=== PATIENT | male | born 1955 | race Caucasian/White ===

== ENCOUNTER 2017-07-10 12:55 | Inpatient (IN) | payer MEDICAID ==
--- NOTE | 2017-07-10 13:35 | ED Physician Chart ---
ED Chief Complaint/HPI - Patient Information Date Seen:: 07/10/17 Time Seen:: 13:10 Chief Complaint:: Vomiting History of Present Illness:: onset x 3 days of N/V/D, melena, and hematemesis; no report of trauma, H/As, neck pain, C/P, SOB, Abd. Pain, A/C fever, chills, or urinary s/s Allergies:: Allergies Allergy/AdvReac Type Severity Reaction Status Date / Time No Known Allergies Allergy Verified 07/10/17 13:12 Vitals:: Vital Signs - 8 hr 07/10/17 13:12 Temp 97.5 F HR 105 RR 37 BP 119/71 O2 Sat % 98 Historian:: Patient Review:: Nurse's Note Reviewed, Old Chart Reviewed, EMS run form Reviewed ED Review of Systems - Review of Systems General/Constitutional: Fever, No chills, No weight loss, No weakness, No diaphoresis, No edema, No loss of appetite Skin: No skin lesions, No rash, No bruising Head: No headache, No light-headedness Eyes: No loss of vision, No pain, No diplopia ENT: No earache, No nasal drainage, No sore throat, No tinnitus Neck: No neck pain, No swelling, No thyromegaly, No stiffness, No mass noted Cardio Vascular: No chest pain, No palpitations, No PND, No orthopnea, No edema Pulmonary: No SOB, No cough, No sputum, No wheezing GI: Nausea, Vomiting, Diarrhea, No diarrhea, No pain, Melena, No hematochezia, No constipation, Hematemesis G/U: No dysuria, No frequency, No hematuria, No nacturia Musculoskeletal: No bone or joint pain, No back pain, No muscle pain Endocrine: No polyuria, No polydipsia Psychiatric: No prior psych history, No depression, No anxiety, No suicidal ideation, No homicidal ideation, No auditory hallucination, No visual hallucination Hematopoietic: No bruising, No lymphadenopathy Allergic/Immuno: No urticaria, No angioedema Neurological: No syncope, No focal symptoms, No weakness, No paresthesia, No headache, No seizure, No dizziness, No confusion, No vertigo ED Past Medical History - Past Medical History Obtainable: Yes Past Medical History: Asthma/COPD, CVA/TIA, Dyslipidemia (Respiratory Failure), PUD/GERD, ESRD, Arthritis, Dementia Family History: Diabetes Melitus, HTN Social History: Non Smoker, No Alcohol, No Drug Use, Single, Care Facility Surgical History: PEG/GTube Psychiatricy History: None, Dementia Medication: Reviewed Family Medical History - Family Member Mother History Unknown: Yes ED Physical Exam - Physical Examination General/Constitutional: Awake, Well-developed, well-nourished, Alert, No distress, GCS 15, Non-toxic appearing, Ambulatory Head: Atraumatic Eyes: Lids, conjuctiva normal, PERRL, EOMI Skin: Nl inspection, No rash, No skin lesions, No ecchymosis, Well hydrated, No lymphadenopathy ENMT: External ears, nose nl, TM canals nl, Nasal exam nl, Lips, teeth, gums nl , Oropharynx nl, Tonsils nl Neck: Nontender, Full ROM w/o pain, No JVD, No nuchal rigidity, No bruit, No mass, No stridor Respiratory: Nl effort/Exclusion Other Respiratory comments:: Lungs: + Rales and Rhonchi; L>R Cardio Vascular: RRR, No murmur, gallop, rubs, NL S1 S2, Carotid/Femoral/Distal pulses equal bilaterally GI: No tenderness/rebounding/guarding, No organomegaly, No hernia, Normal BS's, Nondistended, No mass/bruits, No McBurney tenderness : No CVA tenderness Extremities: No tenderness or effusion, Full ROM, normal strength in all extremities, No edema, Normal digits & nails Neuro/Psych: Alert/oriented, DTR's symmetric, Normal sensory exam, Normal motor strength, Judgement/insight normal, Mood normal, Normal gait, No focal deficits Misc: Normal back, No paraspinal tenderness ED Labs/Radiology/EKG Results - Lab Results Comments:: K+: 2.9; BUN: 103; H/H: 8.7/26.1; BNP: 195; U/A: + Pyuria; Na+: 134 - Radiology Results Comments:: CXR: + LL Infiltrates; CM; CHF - EKG Interpretations EKG Time:: 14:00 Rate & Rhythm: 96; NSR Comments:: non-specific st-t changes ED Septic Shock - . Is Septic Shock (SBP<90, OR Lactate>4 mmol\L) present?: No - <6hrs of presentation: Vital Signs: Vital Signs - 8 hr 07/10/17 13:12 Temp 97.5 F HR 105 RR 37 BP 119/71 O2 Sat % 98 ED Reassessment (Disposition) - Reassessment Reassessment Condition:: Improved - Diagnosis Diagnosis:: Dx: GI Bleed; PNA; Sepsis; Hematemesis; Respiratory Failure; Anemia; Dehydration ; Pre-Renal Azotemia; CHF; Hypokalemia; UTI; Hyponatremia - Aftercare/Follow up Instructions Aftercare/Follow-Up Instructions:: Counseled pt regarding lab results/diagnosis & need follow up, Counseled pt & family regarding lab results/diagnosis & need follow up - Patient Disposition Discharge/Transfer:: Acute Care w/in this hosp Accepting Physician:: Dr. Meek Time Called:: 1430 Time Responded:: 14:30 Admitted to:: Telemetry Spoke to:: Dr. Meek Admitting Medical Physician:: Dr. Meek Condition at Disposition:: Stable, Improved
[2017-07-10] MEDS ORDERED: Sodium Chloride 0.9% 1,000 ML IV ONE (13:37)
--- NOTE | 2017-07-10 13:57 | Diagnostic Imaging Report ---
Portable chest x-ray HISTORY: Chest pain Prior exams are not available for comparison. The exam is limited due to marked patient rotation. There is elevation the right hemidiaphragm. Diffuse infiltrate is seen through the right lung. Infiltrate also noted in the left lower lobe. Changes may be chronic. However, pneumonia cannot be excluded. Pleural thickening noted in the right upper hemithorax. Tracheostomy is seen. IMPRESSION: 1. Elevation of the right hemidiaphragm along with diffuse infiltrate throughout the right lung and left lower lobe regions. Changes may be chronic. However, pneumonia cannot be excluded. Clinical correlation is needed.
[2017-07-10 14:19] LABS: HEMATOCRIT 26.1 % (41.0-60); HEMOGLOBIN 8.7 gm/dL (12-16); MEAN CELL VOLUME 83.9 fl (80-99); MEAN CORPUSCULAR HEMOGLOBIN 27.8 pg (26.0-30.0); MEAN CORPUSCULAR HGB CONC 33.2 pg (28.0-36.0); MEAN PLATELET VOLUME 6.5 fl; PLATELET COUNT 309 Th/cmm (150-400); RED BLOOD COUNT 3.11 Mil/cmm (4.30-5.70); RED CELL DISTRIBUTION WIDTH 16.5 % (11.5-20.0); WHITE BLOOD COUNT 8.9 Th/cmm (4.8-10.8)
[2017-07-10 14:30] LABS: INR 1.17 (0.5-1.4); PROTHROMBIN TIME (TEST) 12.3 SECONDS (9.5-11.5)
[2017-07-10 14:38] LABS: ALB/GLOB RATIO 0.7 (1.0-1.8); ALBUMIN 2.9 gm/dL (4.2-5.5); ANION GAP 14.1 (7.0-16.0); BILIRUBIN,TOTAL 0.5 mg/dL (0.3-1.0); CALCIUM SERUM 9.7 mg/dL (8.6-10.3); CARBON DIOXIDE 20.8 mEq/L (21.0-31.0); CREATININE - SERUM 1.7 mg/dL (0.7-1.3); GFR NON AFRICAN-AMERICAN 43.8 ml/min
[2017-07-10 14:46] LABS: MANUAL DIFF REQUIRED? YES
[2017-07-10 14:57] LABS: POTASSIUM SERUM 2.9 mEq/L (3.5-5.1)
[2017-07-10] MEDS ORDERED: Potassium Chloride 20 mEq ER Tab PO ONE (14:59)
[2017-07-10 15:15] LABS: BAND NEUTROPHILE 6 % (0-10); EOSINOPHIL 3 % (0-5); LYMPHOCYTE 10 % (20-50); MONOCYTE 6 % (2-10); NEUTROPHILS 75 % (40-80); TOTAL CELLS COUNTED 100
[2017-07-10 15:16] LABS: BASOPHIL 0 % (0-3)
[2017-07-10] MEDS ORDERED: Potassium Chloride Elixir 20 mEq /15 mL UDC ONE (15:24)
[2017-07-10 15:44] LABS: URINE MICROSCOPIC INDICATED? YES; URINE SOURCE CLEAN C
[2017-07-10 15:47] LABS: URINE BILIRUBIN NEGATIVE (NEGATIVE); URINE BLOOD MODERATE (NEGATIVE); URINE GLUCOSE (UA) NEGATIVE (NEGATIVE); URINE KETONE NEGATIVE (NEGATIVE); URINE LEUKOCYTE ESTERASE LARGE (NEGATIVE); URINE NITRATE NEGATIVE (NEGATIVE); URINE PROTEIN 100 mg/dL (NEGATIVE); URINE UROBILINOGEN 0.2 E.U./dL (0.2 - 1.0)
[2017-07-10] MEDS ORDERED: Potassium Chloride Elixir 20 mEq /15 mL UDC GT ONE (15:50)
[2017-07-10] MEDS ORDERED: Sodium Chloride 0.9% 1,000 ML IV SCH (16:15)
[2017-07-10 16:23] LABS: URINE CLARITY TURBID (CLEAR); URINE COLOR YELLOW
[2017-07-10 16:29] LABS: URINE BACTERIA NONE SEEN /hpf (NONE SEEN); URINE EPITHELIAL CELLS RARE /lpf (FEW); URINE WBC >100 /hpf (0-5)
[2017-07-10] MEDS ORDERED: cefTRIAXone 1 GM in Sodium Chloride 0.9% 50 ML IV SCH (18:15)
[2017-07-10] MEDS: Albuterol/Ipratropium Neb 3 ML AERS HHN SCH (18:57)
[2017-07-10] MEDS ORDERED: CLONIDINE HCL 0.1 MG GT PRN (19:54)
[2017-07-10] MEDS ORDERED: Fleet Enema 135 mL RC PRN (19:54)
[2017-07-10] MEDS ORDERED: Magnesium Hydroxide (MOM) 30 mL UDC GT PRN (19:54)
[2017-07-10] MEDS ORDERED: INSULIN LISPRO 100 UNIT SQ SCH (20:00)
[2017-07-10] MEDS ORDERED: INSULIN GLARGINE RECOMBINAN SQ SCH (20:00)
[2017-07-10] MEDS ORDERED: Sodium Phos / Potassium Phos 1.25 GM PACK GT SCH (20:00)
--- NOTE | 2017-07-10 20:37 | Consultation ---
DATE OF CONSULTATION: 07/10/2017 PATIENT OF: Dr. Meek. Thank you very much Dr. Meek for this consultation. HISTORY OF PRESENT ILLNESS: This is a 61-year-old male with history of chronic respiratory failure, ventilator dependent who presented with hematemesis and anemia. The patient was admitted for treatment and management. PAST MEDICAL HISTORY: He has history of asthma, COPD, CVA, dysphagia, and dementia. SOCIAL HISTORY: Not available. REVIEW OF SYSTEMS: Unable to obtain because of the patient's condition. PHYSICAL EXAMINATION: GENERAL: The patient is on the vent, lethargic. VITAL SIGNS: Temperature is 97.0, pulse 80, respiration is 22, blood pressure is 99/58, and saturation 100%. CHEST: Good breath sounds, no wheezing. Few rhonchi in bases. HEART: Regular rate and rhythm. ABDOMEN: Soft. EXTREMITIES: No edema. LABORATORY DATA: WBC is 8.9, hemoglobin 8.7, hematocrit 26.1, platelets are 309. Sodium is 134, potassium 2.9, BUN is 103, and creatinine 1.7. BNP 195. UA has some leukoesterase and WBCs. IMPRESSION: 1. This is a 61-year-old male with chronic respiratory failure. 2. Urinary tract infection. 3. Dehydration. 4. Upper gastrointestinal bleed, rule out ulcers. 5. Pneumonia is evident on the chest x-ray. PLAN: 1. Ventilator support. 2. IV antibiotics. 3. Protonix and GI evaluation and send followup cultures and nebulizer treatment. I will follow the patient with you. Thank you very much for this consultation. JOB# [id number]
[2017-07-10] MEDS ORDERED: Pneumococcal Vaccine 0.5 mL Vial IM ONE (20:44)
[2017-07-10] MEDS: Chlorhexidine Gluconate 0.12% 15mL Mouthwash MM SCH (21:02)
[2017-07-10] MEDS: Insulin Detemir 100 units/mL 10mL Vial SUBQ SCH (21:15)
--- NOTE | 2017-07-10 23:31 | Consultation ---
Consult Note - Consult Note Service Date: 07/10/17 Referring Physician: Sendy Meek Consult Note: PHYSICIAN Consultation Note: Date of Admission: 07/10/17 Purpose of Consultation: Leukocytosis, sepsis. Chief Complaint: Patient SWAPNA PULIDO was admitted to location Intensive Care Unit with HEMATEMESIS R/O GI BLEED. History of Present Illness: 61-year-old male with past medical history of asthma, COPD, CVA, dyslipidemia, peptic ulcer disease, GERD, arthritis, dementia, vent dependent respiratory failure brought from the nursing facility for the bleeding per rectum. Patient also had nausea vomiting and diarrhea with hematemesis. On initial evaluation patient's temperature was 97.5F and WBC count was 8900. Chest episode diffuse infiltrate. ID consult was called for antibiotic management. Past Medical History: asthma, COPD, CVA, dyslipidemia, peptic ulcer disease, GERD, arthritis, dementia, vent dependent respiratory failure Allergies Allergy/AdvReac Type Severity Reaction Status Date / Time No Known Allergies Allergy Verified 07/10/17 13:12 Vital Signs Temp 97.8 F 07/10/17 17:26 Pulse 73 07/10/17 22:18 Resp 17 07/10/17 19:58 BP 115/56 07/10/17 18:00 Pulse Ox 100 07/10/17 22:18 Intake & Output 07/10/17 07/10/17 07/11/17 06:59 18:59 06:59 Intake Total 50 Balance 50 Intake: Intake, IV Amount 50 cefTRIAXone 1 gm In 50 Sodium Chloride 0.9% 50 ml @ 100 mls/hr IV Q24HR [facility] Rx#:[id number] Laboratory Results - last 24 hr 07/10/17 07/10/17 07/10/17 16:40 16:40 21:10 POC Glucose 92 Blood Type O POSITIVE O POSITIVE Antibody Screen NEGATIVE NEGATIVE Crossmatch See Detail Home Medication Medication Instructions Recorded Type Acetaminophen [Tylenol Extra 1,000 mg GT Q4HR PRN 07/10/17 History Strength] Acetaminophen [Tylenol] 650 mg GT Q4HR PRN 07/10/17 History Albuterol/Ipratropium Neb [Duoneb 3 ml HHN Q6HR 07/10/17 History Neb] Amino Acids/Protein Hydrolys 30 ml GT BID 07/10/17 History [Pro-Stat Sugar Free Awc 887 ml] Ascorbic Acid [Vitamin C] 500 mg GT DAILY 07/10/17 History Calcium Acetate [Phoslo] 667 mg GT BID 07/10/17 History Chlorhexidine Gluconate 0.12% 30 ml MM BID 07/10/17 History [Peridex] Clonidine HCl [Kapvay] 0.1 mg GT Q6H PRN 07/10/17 History Cran/Vitc/Mannose/Fos/Bromeln 3,875 mg GT DAILY 07/10/17 History [Uti-Stat Liquid] Dextran 70/Hypromellose 1 each OP BID 07/10/17 History [Artificial Tears] Docusate Sodium [Colace] 100 mg GT DAILY 07/10/17 History Famotidine 20 mg GT BID 07/10/17 History Fleet Enema [Fleet Enema] 135 ml RC Q24H PRN 07/10/17 History Folic Acid/Vit Bcomp,C [Lluvia-Brenda 0.8 mg GT BID 07/10/17 History Tablet] Hydrocodone/APAP 10 mg/325 mg 1 tab GT Q6H PRN 07/10/17 History [[place] 10 mg/325 mg] Insulin Glargine, Recombinan 8 unit SQ Q8H 07/10/17 History [Lantus] Insulin Lispro [Humalog] 100 unit SQ Q6H 07/10/17 History Levofloxacin [Levaquin] 500 mg GT DAILY 07/10/17 History Magnesium Hydroxide [Milk of 30 ml GT Q24H PRN 07/10/17 History Magnesia] Naph,Mb-Db/K pH,Mbdb [Phos-Nak] 2 pdr GT Q4H 07/10/17 History Current Medications Generic Name Dose Route Start Last Admin Trade Name Freq PRN Reason Stop Dose Admin Acetaminophen 650 mg 07/10/17 19:54 Tylenol 650mg/20.3ml Suspension GT 09/08/17 19:53 Q4HR PRN MILD PAIN OR TEMP>101 Acetaminophen 1,000 mg 07/10/17 19:54 Tylenol 650mg/20.3ml Suspension GT 09/08/17 19:53 Q4HR PRN MOD/SEVERE PAIN Acetaminophen/Hydrocodone Bitart 1 tab 07/10/17 19:54 [place] 10 Mg/325 Mg GT 09/08/17 19:53 Q6H PRN Severe Pain Albuterol/Ipratropium 3 ml 07/10/17 19:00 07/10/17 18:57 Duoneb Neb HHN 09/08/17 18:59 3 ml Q6HRT MIKAYLA Administration Albuterol/Ipratropium 3 ml 07/11/17 01:00 Duoneb Neb HHN 09/09/17 00:59 Q6HRT MIKAYLA Ascorbic Acid 500 mg 07/11/17 09:00 Vitamin C GT 09/09/17 08:59 DAILY MIKAYLA Calcium Acetate 667 mg 07/11/17 08:00 Phoslo GT 09/09/17 07:59 BIDWM MIKAYLA Chlorhexidine Gluconate 15 ml 07/10/17 20:00 07/10/17 21:02 Peridex MM 09/08/17 19:59 15 ml 0800,2000 MIKAYLA Administration Chlorhexidine Gluconate 30 ml 07/11/17 09:00 Peridex MM 09/09/17 08:59 BID MIKAYLA Docusate Sodium 100 mg 07/11/17 09:00 Colace PO 09/09/17 08:59 DAILY MIKAYLA Famotidine 20 mg 07/11/17 09:00 Pepcid GT 09/09/17 08:59 BID MIKAYLA Sodium Chloride 1,000 mls @ 50 mls/hr 07/10/17 16:15 07/10/17 19:00 Nacl 0.9% IV 09/08/17 16:14 50 mls/hr .Q20H MIKAYLA Administration Ceftriaxone Sodium 1 gm/ 50 mls @ 100 mls/hr 07/10/17 18:15 07/10/17 21:35 Sodium Chloride IV 09/08/17 18:14 Infused Q24HR [facility] Infusion Insulin Aspart 0 units 07/11/17 00:00 Novolog Insulin Sliding Scale SUBQ 09/09/17 00:00 Q6HR [facility] Protocol Insulin Detemir 10 units 07/10/17 21:00 07/10/17 21:15 Levemir Insulin SUBQ 09/08/17 20:59 Not Given BID [facility] Protocol Magnesium Hydroxide 30 ml 07/10/17 19:54 Milk Of Magnesia GT 09/08/17 19:53 Q24H PRN Constipation Miscellaneous 30 ml 07/11/17 09:00 Amino Acids/Protein Hydrolys [Pro-Stat Awc Liquid] GT 09/09/17 08:59 BID MIKAYLA Miscellaneous 0.1 mg 07/10/17 19:54 Clonidine Hcl [Kapvay] GT Q6H PRN HTN Miscellaneous 3,875 mg 07/11/17 09:00 Cran/Vitc/Mannose/Fos/Bromeln [Uti-Stat Liquid] GT 09/09/17 08:59 DAILY MIKAYLA Miscellaneous 1 each 07/11/17 09:00 Dextran 70/Hypromellose [Artificial Tears] OP 09/09/17 08:59 BID MIKAYLA Pantoprazole Sodium 40 mg 07/11/17 09:00 Protonix IVP 09/09/17 08:59 DAILY MIKAYLA Pantoprazole Sodium 40 mg 07/11/17 09:00 Protonix IVP 09/09/17 08:59 DAILY MIKAYLA Potassium Phos/Sodium Phos gm 07/10/17 20:00 Neutra-Phos GT 09/08/17 19:59 Q4H MIKAYLA Sodium Phosphate 135 ml 07/10/17 19:54 Fleet Enema RC 09/08/17 19:53 Q24H PRN Constipation Vitamin B Complex/Vit C/Folic Acid tab 07/11/17 09:00 Vitamin B Complex W/Vitamin C GT 09/09/17 08:59 BID MIKAYLA Review of Systems: A 12 point ROS was reviewed with the pertinent positive and negatives noted in the HPI. Social History Smoking Status Never smoker Family Medical History Not available. Physical Exam: General: Comfortable, not in acute distress. HEENT: Oral cavity: Moist, pink tongue. Eyes: Pupil PERRLA. EOMI. Neck: Supple, no JVD. No use of accessory neck muscles. Trach site is clear Cardio: S1 and S2 within normal limits regular rhythm no murmur no gallop. Respiratory: Vesicular breath sound with the crackles present bilaterally. Abdominal: Soft, nontender, nondistended bowel sounds present Genital/Urinary: Extremities: No cyanosis, no clubbing, no edema. Neurological: Alert but unable to come negative. Assessment: 1. Pneumonia likely healthcare facility related pneumonia versus aspiration pneumonia. 2. Vent dependent respiratory failure. 3. Dementia. Plan: Continue zosyn. Thank you, Dr. Meek for involving me taking care of this patient Signed, Will Orozco M.D. [id number]
[2017-07-11] MEDS: INSULIN ASPART SLIDING SCALE 100 UNITS/ML UNIT SUBQ SCH ×5 (00:05→23:16)
[2017-07-11] MEDS: Albuterol/Ipratropium Neb 3 ML AERS HHN SCH ×5 (00:42→20:19)
[2017-07-11] MEDS ORDERED: Piperacillin Sodium/Tazobact 2.25 gm Vial IV ONE (07:00)
[2017-07-11] MEDS ORDERED: Chlorhexidine Gluconate 0.12% 480mL Bottle MM SCH (09:00)
[2017-07-11] MEDS ORDERED: Vitamin B Complex w/Vitamin C Tab GT SCH (09:00)
[2017-07-11] MEDS ORDERED: Non-Formulary Item 1 EA (Amino Acids/Protein Hydrolys [Pro-Stat Awc Liquid] 30 ML) GT SCH (09:00)
[2017-07-11] MEDS ORDERED: Non-Formulary Item 1 EA (Cran/Vitc/Mannose/Fos/Bromeln [Uti-Stat Liquid] 3,875 MG) GT SCH (09:00)
[2017-07-11] MEDS ORDERED: Chlorhexidine Gluconate 0.12% 15mL Mouthwash MM SCH (09:00)
[2017-07-11] MEDS ORDERED: Non-Formulary Item 1 EA (Dextran 70/Hypromellose [Artificial Tears] 1 EACH) OP SCH (09:00)
[2017-07-11 09:09] LABS: % EOSINOPHILS 6.4 % (0.0-5.0); % MONOCYTES 8.9 % (2.0-10.0); % NEUTROPHILS 74.7 % (40.0-80.0); EOSINOPHILE ABSOLUTE 0.4 Th/cmm (0.1-0.4); HEMOGLOBIN 11.5 gm/dL (12-16); LYMPHOCYTE ABSOLUTE 0.6 Th/cmm (1.5-3.0); MEAN CORPUSCULAR HEMOGLOBIN 27.4 pg (26.0-30.0); MEAN CORPUSCULAR HGB CONC 32.6 pg (28.0-36.0); MONOCYTE ABSOLUTE 0.6 Th/cmm (0.3-1.0); NEUTROPHILE ABSOLUTE 4.8 Th/cmm (1.8-8.0); RED BLOOD COUNT 4.22 Mil/cmm (4.30-5.70); RED CELL DISTRIBUTION WIDTH 16.4 % (11.5-20.0); WHITE BLOOD COUNT 6.4 Th/cmm (4.8-10.8)
[2017-07-11 09:10] LABS: HEMATOCRIT 35.4 % (41.0-60); PLATELET COUNT 235 Th/cmm (150-400)
[2017-07-11 09:23] LABS: INR 1.1 (0.5-1.4); PROTHROMBIN TIME (TEST) 11.5 SECONDS (9.5-11.5)
[2017-07-11 09:25] LABS: ANION GAP 12.7 (7.0-16.0); CALCIUM SERUM 9.5 mg/dL (8.6-10.3); CARBON DIOXIDE 19.7 mEq/L (21.0-31.0); CHLORIDE 110 mEq/L (98-107); CREATININE - SERUM 1.5 mg/dL (0.7-1.3); GFR AFRICAN-AMERICAN > 60.0 ml/min (>90); GFR NON AFRICAN-AMERICAN 50.6 ml/min; GLUCOSE 94 mg/dL (70-105); POTASSIUM SERUM 3.4 mEq/L (3.5-5.1); SODIUM SERUM 139 mEq/L (136-145)
[2017-07-11 09:27] LABS: BUN - UREA NITROGEN 89 mg/dL (7-25)
[2017-07-11] MEDS: Ascorbic Acid 500 mg/5 mL UDC GT SCH (10:05)
[2017-07-11] MEDS: Insulin Detemir 100 units/mL 10mL Vial SUBQ SCH ×2 (10:07→17:28)
[2017-07-11] MEDS: Multivitamin Tab PO SCH (10:08)
[2017-07-11] MEDS: Polyvinyl Alcohol Ophth Soln 15 mL Bottle EACH EYE SCH ×2 (10:12→16:49)
[2017-07-11] MEDS: Chlorhexidine Gluconate 0.12% 15mL Mouthwash MM SCH ×2 (10:21→20:38)
--- NOTE | 2017-07-11 10:44 | Diagnostic Imaging Report ---
KUB abdominal film (portable) HISTORY: Hematemesis There is a nonspecific gas pattern nondilated bowel. No free intraperitoneal air. No abnormal calcifications are seen. Catheter tubing projects over the mid abdomen. IMPRESSION: 1. Nonspecific bowel gas pattern with no acute radiographic abnormalities
[2017-07-11] MEDS ORDERED: Probiotic Screen MC PRN (14:15)
--- NOTE | 2017-07-11 14:46 | Infectious Disease Prog Note ---
Infectious Disease Subjective - Review of Systems Service Date: 07/11/17 Subjective: There is no new change. ON VENTILATOR. Infectious Disease Objective - Results Result Diagrams: 07/12/17 04:31 07/12/17 04:31 Recent Labs: Laboratory Last Values WBC 6.4 Th/cmm (4.8-10.8) 07/11/17 08:50 RBC 4.22 Mil/cmm (4.30-5.70) L 07/11/17 08:50 Hgb 11.5 gm/dL (12-16) L 07/11/17 08:50 Hct 35.4 % (41.0-60) L D 07/11/17 08:50 MCV 84.0 fl (80-99) 07/11/17 08:50 MCH 27.4 pg (26.0-30.0) 07/11/17 08:50 MCHC Differential 32.6 pg (28.0-36.0) 07/11/17 08:50 RDW 16.4 % (11.5-20.0) 07/11/17 08:50 Plt Count 235 Th/cmm (150-400) D 07/11/17 08:50 MPV 6.0 fl 07/11/17 08:50 Neutrophils % 74.7 % (40.0-80.0) 07/11/17 08:50 Band Neutrophils % 6 % (0-10) 07/10/17 14:00 Lymphocytes % 10.0 % (20.0-50.0) L 07/11/17 08:50 Monocytes % 8.9 % (2.0-10.0) 07/11/17 08:50 Eosinophils % 6.4 % (0.0-5.0) H 07/11/17 08:50 Basophils % 0.0 % (0.0-2.0) 07/11/17 08:50 Neutrophils (Manual) 75 % (40-80) 07/10/17 14:00 Lymphocytes 10 % (20-50) L 07/10/17 14:00 Monocytes 6 % (2-10) 07/10/17 14:00 Eosinophils 3 % (0-5) 07/10/17 14:00 Basophils 0 % (0-3) 07/10/17 14:00 PT 11.5 SECONDS (9.5-11.5) 07/11/17 08:50 INR 1.10 (0.5-1.4) 07/11/17 08:50 PTT (Actin FS) 35.6 SECONDS (26.0-38.0) 07/10/17 14:00 Sodium 139 mEq/L (136-145) 07/11/17 08:50 Potassium 3.4 mEq/L (3.5-5.1) L 07/11/17 08:50 Chloride 110 mEq/L (98-107) H 07/11/17 08:50 Carbon Dioxide 19.7 mEq/L (21.0-31.0) L 07/11/17 08:50 Anion Gap 12.7 (7.0-16.0) 07/11/17 08:50 BUN 89 mg/dL (7-25) H* 07/11/17 08:50 Creatinine 1.5 mg/dL (0.7-1.3) H 07/11/17 08:50 Est GFR ( Amer) > 60.0 ml/min (>90) 07/11/17 08:50 Est GFR (Non-Af Amer) 50.6 ml/min 07/11/17 08:50 BUN/Creatinine Ratio 59.3 07/11/17 08:50 Glucose 94 mg/dL (70-105) 07/11/17 08:50 POC Glucose 98 MG/DL (70 - 105) 07/11/17 12:38 Whole Bld Lactic Acid 0.97 mmol/L (0.60-1.99) 07/10/17 14:00 Calcium 9.5 mg/dL (8.6-10.3) 07/11/17 08:50 Total Bilirubin 0.5 mg/dL (0.3-1.0) 07/10/17 14:00 AST 59 U/L (13-39) H 07/10/17 14:00 ALT 60 U/L (7-52) H 07/10/17 14:00 Alkaline Phosphatase 735 U/L (34-104) H 07/10/17 14:00 Creatine Kinase 35 U/L (30-223) 07/10/17 14:00 Troponin I 0.04 ng/mL (0.01-0.05) 07/10/17 14:00 B-Natriuretic Peptide 195.0 pg/mL (5.0-100.0) H 07/10/17 14:00 Total Protein 7.0 gm/dL (6.0-8.3) 07/10/17 14:00 Albumin 2.9 gm/dL (4.2-5.5) L 07/10/17 14:00 Globulin 4.1 gm/dL 07/10/17 14:00 Albumin/Globulin Ratio 0.7 (1.0-1.8) L 07/10/17 14:00 Triglycerides 46 mg/dL (<150) 07/10/17 14:00 Cholesterol 65 mg/dL (<200) 07/10/17 14:00 LDL Cholesterol Direct 32 mg/dL (75-193) L 07/10/17 14:00 HDL Cholesterol 23 mg/dL (23-92) 07/10/17 14:00 Amylase 45 U/L (29-103) 07/10/17 14:00 Lipase 13 U/L (11-82) 07/10/17 14:00 Urine Source CLEAN C 07/10/17 13:11 Urine Color YELLOW 07/10/17 13:11 Urine Clarity TURBID (CLEAR) 07/10/17 13:11 Urine pH 6.0 (4.6 - 8.0) 07/10/17 13:11 Ur Specific [place] 1.010 (1.005-1.030) 07/10/17 13:11 Urine Protein 100 mg/dL (NEGATIVE) H 07/10/17 13:11 Urine Glucose (UA) NEGATIVE mg/dL (NEGATIVE) 07/10/17 13:11 Urine Ketones NEGATIVE mg/dL (NEGATIVE) 07/10/17 13:11 Urine Blood MODERATE (NEGATIVE) H 07/10/17 13:11 Urine Nitrate NEGATIVE (NEGATIVE) 07/10/17 13:11 Urine Bilirubin NEGATIVE (NEGATIVE) 07/10/17 13:11 Urine Urobilinogen 0.2 E.U./dL (0.2 - 1.0) 07/10/17 13:11 Ur Leukocyte Esterase LARGE (NEGATIVE) H 07/10/17 13:11 Urine RBC 5-10 /hpf (0-5) H 07/10/17 13:11 Urine WBC >100 /hpf (0-5) H 07/10/17 13:11 Ur Epithelial Cells RARE /lpf (FEW) 07/10/17 13:11 Urine Bacteria NONE SEEN /hpf (NONE SEEN) 07/10/17 13:11 Blood Type O POSITIVE 07/10/17 16:40 Antibody Screen NEGATIVE 07/10/17 16:40 Crossmatch See Detail 07/10/17 16:40 - Physical Exam Vitals and I&O: Vital Signs Temp 96.5 F 07/11/17 08:00 Pulse 75 07/11/17 10:00 Resp 21 07/11/17 10:00 BP 121/64 07/11/17 10:00 Pulse Ox 100 07/11/17 10:00 Intake & Output 07/10/17 07/11/17 07/11/17 18:59 06:59 18:59 Intake Total 50 550 Output Total 1050 Balance 50 -500 Weight (lbs) 52.299 kg Intake: Intake, IV Amount 50 50 Piperacillin Sodium/ 50 Tazobact 2.25 gm In Sodium Chloride 0.9% 50 ml @ 100 mls/hr IV Q6HR [facility] Rx#:[id number] cefTRIAXone 1 gm In 50 Sodium Chloride 0.9% 50 ml @ 100 mls/hr IV Q24HR [facility] Rx#:[id number] Blood Product 500 Output: Urine 1050 Other: # Bowel Movements 0 Weight Source Bedscale Active Medications: Current Medications Acetaminophen (Tylenol 650mg/20.3ml Suspension) 650 mg GT Q4HR PRN PRN Reason: MILD PAIN OR TEMP>101 Stop: 09/08/17 19:53 Acetaminophen (Tylenol 650mg/20.3ml Suspension) 1,000 mg GT Q4HR PRN PRN Reason: MOD/SEVERE PAIN Stop: 09/08/17 19:53 Acetaminophen/Hydrocodone Bitart ([place] 10 Mg/325 Mg) 1 tab GT Q6H PRN PRN Reason: Severe Pain Stop: 09/08/17 19:53 Albuterol/Ipratropium (Duoneb Neb) 3 ml HHN Q6HRT [facility] Stop: 09/08/17 18:59 Last Admin: 07/11/17 07:20 Dose: 3 ml Albuterol/Ipratropium (Duoneb Neb) 3 ml HHN Q6HRT [facility] Stop: 09/09/17 00:59 Artificial Tears (Artificial Tears Ophth Soln) 1 drop EACH EYE BID [facility] Stop: 09/09/17 08:59 Last Admin: 07/11/17 10:12 Dose: 1 drop Ascorbic Acid (Vitamin C) 500 mg GT DAILY MIKAYLA Stop: 09/09/17 08:59 Last Admin: 07/11/17 10:05 Dose: Not Given Calcium Acetate (Phoslo) 667 mg GT BIDWM MIKAYLA Stop: 09/09/17 07:59 Last Admin: 07/11/17 10:05 Dose: Not Given Chlorhexidine Gluconate (Peridex) 15 ml MM 0800,1999 MIKAYLA Stop: 09/08/17 19:59 Last Admin: 07/11/17 10:21 Dose: 15 ml Chlorhexidine Gluconate (Peridex) 15 ml MM BID MIKAYLA Stop: 09/09/17 08:59 Docusate Sodium (Colace) 100 mg PO DAILY MIKAYLA Stop: 09/09/17 08:59 Last Admin: 07/11/17 10:06 Dose: Not Given Famotidine (Pepcid) 20 mg GT BID MIKAYLA Stop: 09/09/17 08:59 Last Admin: 07/11/17 10:06 Dose: Not Given Sodium Chloride (Nacl 0.9%) 1,000 mls @ 50 mls/hr IV .Q20H [facility] Stop: 09/08/17 16:14 Last Admin: 07/10/17 19:00 Dose: 50 mls/hr Piperacillin Sod/Tazobactam (Sod 2.25 gm/ Sodium Chloride) 50 mls @ 100 mls/hr IV Q6HR MIKAYLA Stop: 09/09/17 05:59 Last Admin: 07/11/17 12:30 Dose: 100 mls/hr Insulin Aspart (Novolog Insulin Sliding Scale) 0 units SUBQ Q6HR MIKAYLA PRN Reason: Protocol Stop: 09/09/17 00:00 Last Admin: 07/11/17 06:27 Dose: Not Given Insulin Detemir (Levemir Insulin) 10 units SUBQ BID MIKAYLA PRN Reason: Protocol Stop: 09/08/17 20:59 Last Admin: 07/11/17 10:07 Dose: Not Given Lactobacillus Rhamnosus (Culturelle 15b) 1 each PO DAILY [facility] Stop: 09/10/17 08:59 Magnesium Hydroxide (Milk Of Magnesia) 30 ml GT Q24H PRN PRN Reason: Constipation Stop: 09/08/17 19:53 Miscellaneous (Probiotic Screen) 1 ea MC PRN PRN PRN Reason: PROTOCOL Stop: 09/09/17 14:14 Multivitamins/Vitamin C (Theragran) 1 tab PO DAILY MIKAYLA Stop: 09/09/17 08:59 Last Admin: 07/11/17 10:08 Dose: Not Given Pantoprazole Sodium (Protonix) 40 mg IVP DAILY MIKAYLA Stop: 09/09/17 08:59 Last Admin: 07/11/17 10:12 Dose: 40 mg Pantoprazole Sodium (Protonix) 40 mg IVP DAILY [facility] Stop: 09/09/17 08:59 Potassium Phosphate (K Phos) 500 mg PO Q4H MIKAYLA Stop: 09/09/17 08:14 Last Admin: 07/11/17 10:05 Dose: Not Given Sodium Phosphate (Fleet Enema) 135 ml RC Q24H PRN PRN Reason: Constipation Stop: 09/08/17 19:53 General: no acute distress, cachectic HEENT: atraumatic, normocephalic Neck: tracheostomy, no thyromegaly Cardiovascular: S1S2, regular Lungs: clear to percussion, crackles, rhonchi Abdomen: soft, no tender, no hepatomegaly Extremities: no cyanosis, no clubbing, no edema Infectious Disease Assmt/Plan - Problem List Patient Problems: All Active Problems COFFEE GROUND EMESIS WITH TACHYPNEA (Acute) - Assessment Assessment: 1. Aspiration pneumonia. 2. GI bleed. 3. Vent dependent respiratory failure. 4. Protein calorie malnutrition. - Plan Plan: Continue Zosyn.
--- NOTE | 2017-07-11 16:51 | History & Physical ---
ADMIT DATE: 07/10/2017 HISTORY OF PRESENT ILLNESS: I saw him yesterday. The patient is from ____ long term. The patient is known to have history of chronic respiratory failure, he is status post trach and PEG. The patient is on a ventilator. The patient including cough also has a blood in the stool. He was admitted for possible GI bleeding. The patient also has underlying dementia and the patient has history of CVA in the past. PAST MEDICAL HISTORY: As I noted above. PHYSICAL EXAMINATION: GENERAL: He is having shortness of breath. He is having blood in the stool. HEAD: Normal. ENT: Normal. NECK: Supple and nontender. LUNGS: Bilaterally clear. CARDIOVASCULAR SYSTEM: S1 and S2 heard. ABDOMEN: Soft. Bowel sounds are heard. CENTRAL NERVOUS SYSTEM: Decreased sensorium. LABORATORY DATA: The patient's potassium was 2.9. BUN was high at 103 and examination was otherwise normal. DIAGNOSES: Status for possible GI bleeding, sepsis, ____ respiratory failure, dehydration, prerenal azotemia, history of CHF, urinary tract infection, hypokalemia, and hyponatremia. PLAN: The patient is being admitted. I will follow the patient along with the specialist. We will work him up for GI bleeding. JOB# [id number]
[2017-07-11] MEDS: D5-0.45NS 1,000 ML IV SCH (20:39)
[2017-07-12] MEDS: Albuterol/Ipratropium Neb 3 ML AERS HHN SCH ×6 (01:00→21:22)
[2017-07-12 05:33] LABS: % BASOPHILS 0.1 % (0.0-2.0); % EOSINOPHILS 5.4 % (0.0-5.0); % LYMPHOCYTES 15.5 % (20.0-50.0); EOSINOPHILE ABSOLUTE 0.3 Th/cmm (0.1-0.4); HEMATOCRIT 35.5 % (41.0-60); HEMOGLOBIN 11.6 gm/dL (12-16); LYMPHOCYTE ABSOLUTE 0.9 Th/cmm (1.5-3.0); MEAN CELL VOLUME 83.4 fl (80-99); MEAN CORPUSCULAR HEMOGLOBIN 27.2 pg (26.0-30.0); MEAN CORPUSCULAR HGB CONC 32.6 pg (28.0-36.0); MEAN PLATELET VOLUME 6.1 fl; MONOCYTE ABSOLUTE 0.7 Th/cmm (0.3-1.0); NEUTROPHILE ABSOLUTE 4.2 Th/cmm (1.8-8.0); PLATELET COUNT 225 Th/cmm (150-400); RED BLOOD COUNT 4.25 Mil/cmm (4.30-5.70); RED CELL DISTRIBUTION WIDTH 16.5 % (11.5-20.0); WHITE BLOOD COUNT 6.1 Th/cmm (4.8-10.8)
[2017-07-12] MEDS ORDERED: Dextrose 50% 50 mL Abboject IVP ONE ×3 (05:48→12:33)
[2017-07-12 05:53] LABS: ANION GAP 15.4 (7.0-16.0); CALCIUM SERUM 9.4 mg/dL (8.6-10.3); CARBON DIOXIDE 15.7 mEq/L (21.0-31.0); CREATININE - SERUM 1.6 mg/dL (0.7-1.3); GFR AFRICAN-AMERICAN 56.8 ml/min (>90); GFR NON AFRICAN-AMERICAN 46.9 ml/min; POTASSIUM SERUM 4.1 mEq/L (3.5-5.1)
[2017-07-12] MEDS: INSULIN ASPART SLIDING SCALE 100 UNITS/ML UNIT SUBQ SCH ×3 (05:56→19:10)
--- NOTE | 2017-07-12 08:13 | Diagnostic Imaging Report ---
CHEST X-RAY: AP view INDICATION: Shortness of breath COMPARISON: 07/10/2017 FINDINGS: Tracheostomy tube is stable. There is persistent elevation of the right hemidiaphragm. Bilateral pulmonary infiltrates are seen. Prominent right paratracheal soft tissue density is noted. Borderline prominent heart is noted. IMPRESSION: Bilateral pulmonary infiltrates with volume loss of the right lung and prominent right paratracheal soft tissue density. Postobstructive pneumonia in this region may be considered. Recommend clinical correlation and correlation with older exams. There may have been previous right lung surgery. If indicated CT of the chest with IV contrast may be obtained for further assessment.
[2017-07-12] MEDS: Ascorbic Acid 500 mg/5 mL UDC GT SCH (08:35)
[2017-07-12] MEDS: Lactobacillus Rhamnosus GG 15 Billion CFU CAP.SPRINK PO SCH (08:36)
[2017-07-12] MEDS: Multivitamin Tab PO SCH (08:36)
[2017-07-12] MEDS: Chlorhexidine Gluconate 0.12% 15mL Mouthwash MM SCH ×2 (08:50→21:56)
[2017-07-12] MEDS: Polyvinyl Alcohol Ophth Soln 15 mL Bottle EACH EYE SCH ×2 (08:50→18:00)
[2017-07-12] MEDS: Insulin Detemir 100 units/mL 10mL Vial SUBQ SCH ×2 (09:00→17:20)
--- NOTE | 2017-07-12 12:19 | Infectious Disease Prog Note ---
Infectious Disease Subjective - Review of Systems Service Date: 07/12/17 Subjective: There is no new change. ON THE VENTILATOR,S/P TRACH. Infectious Disease Objective - Results Result Diagrams: 07/12/17 04:31 07/12/17 04:31 Recent Labs: Laboratory Last Values WBC 6.1 Th/cmm (4.8-10.8) 07/12/17 04:31 RBC 4.25 Mil/cmm (4.30-5.70) L 07/12/17 04:31 Hgb 11.6 gm/dL (12-16) L 07/12/17 04:31 Hct 35.5 % (41.0-60) L 07/12/17 04:31 MCV 83.4 fl (80-99) 07/12/17 04:31 MCH 27.2 pg (26.0-30.0) 07/12/17 04:31 MCHC Differential 32.6 pg (28.0-36.0) 07/12/17 04:31 RDW 16.5 % (11.5-20.0) 07/12/17 04:31 Plt Count 225 Th/cmm (150-400) 07/12/17 04:31 MPV 6.1 fl 07/12/17 04:31 Neutrophils % 67.0 % (40.0-80.0) 07/12/17 04:31 Band Neutrophils % 6 % (0-10) 07/10/17 14:00 Lymphocytes % 15.5 % (20.0-50.0) L 07/12/17 04:31 Monocytes % 12.0 % (2.0-10.0) H 07/12/17 04:31 Eosinophils % 5.4 % (0.0-5.0) H 07/12/17 04:31 Basophils % 0.1 % (0.0-2.0) 07/12/17 04:31 Neutrophils (Manual) 75 % (40-80) 07/10/17 14:00 Lymphocytes 10 % (20-50) L 07/10/17 14:00 Monocytes 6 % (2-10) 07/10/17 14:00 Eosinophils 3 % (0-5) 07/10/17 14:00 Basophils 0 % (0-3) 07/10/17 14:00 PT 11.5 SECONDS (9.5-11.5) 07/11/17 08:50 INR 1.10 (0.5-1.4) 07/11/17 08:50 PTT (Actin FS) 35.6 SECONDS (26.0-38.0) 07/10/17 14:00 Sodium 137 mEq/L (136-145) 07/12/17 04:31 Potassium 4.1 mEq/L (3.5-5.1) 07/12/17 04:31 Chloride 110 mEq/L (98-107) H 07/12/17 04:31 Carbon Dioxide 15.7 mEq/L (21.0-31.0) L 07/12/17 04:31 Anion Gap 15.4 (7.0-16.0) 07/12/17 04:31 BUN 81 mg/dL (7-25) H* 07/12/17 04:31 Creatinine 1.6 mg/dL (0.7-1.3) H 07/12/17 04:31 Est GFR ( Amer) 56.8 ml/min (>90) 07/12/17 04:31 Est GFR (Non-Af Amer) 46.9 ml/min 07/12/17 04:31 BUN/Creatinine Ratio 50.6 07/12/17 04:31 Glucose 41 mg/dL (70-105) L* 07/12/17 04:31 POC Glucose 214 MG/DL (70 - 105) H 07/12/17 06:13 Whole Bld Lactic Acid 0.97 mmol/L (0.60-1.99) 07/10/17 14:00 Calcium 9.4 mg/dL (8.6-10.3) 07/12/17 04:31 Total Bilirubin 0.5 mg/dL (0.3-1.0) 07/10/17 14:00 AST 59 U/L (13-39) H 07/10/17 14:00 ALT 60 U/L (7-52) H 07/10/17 14:00 Alkaline Phosphatase 735 U/L (34-104) H 07/10/17 14:00 Creatine Kinase 35 U/L (30-223) 07/10/17 14:00 Troponin I 0.04 ng/mL (0.01-0.05) 07/10/17 14:00 B-Natriuretic Peptide 195.0 pg/mL (5.0-100.0) H 07/10/17 14:00 Total Protein 7.0 gm/dL (6.0-8.3) 07/10/17 14:00 Albumin 2.9 gm/dL (4.2-5.5) L 07/10/17 14:00 Globulin 4.1 gm/dL 07/10/17 14:00 Albumin/Globulin Ratio 0.7 (1.0-1.8) L 07/10/17 14:00 Triglycerides 46 mg/dL (<150) 07/10/17 14:00 Cholesterol 65 mg/dL (<200) 07/10/17 14:00 LDL Cholesterol Direct 32 mg/dL (75-193) L 07/10/17 14:00 HDL Cholesterol 23 mg/dL (23-92) 07/10/17 14:00 Amylase 45 U/L (29-103) 07/10/17 14:00 Lipase 13 U/L (11-82) 07/10/17 14:00 Urine Source CLEAN C 07/10/17 13:11 Urine Color YELLOW 07/10/17 13:11 Urine Clarity TURBID (CLEAR) 07/10/17 13:11 Urine pH 6.0 (4.6 - 8.0) 07/10/17 13:11 Ur Specific [place] 1.010 (1.005-1.030) 07/10/17 13:11 Urine Protein 100 mg/dL (NEGATIVE) H 07/10/17 13:11 Urine Glucose (UA) NEGATIVE mg/dL (NEGATIVE) 07/10/17 13:11 Urine Ketones NEGATIVE mg/dL (NEGATIVE) 07/10/17 13:11 Urine Blood MODERATE (NEGATIVE) H 07/10/17 13:11 Urine Nitrate NEGATIVE (NEGATIVE) 07/10/17 13:11 Urine Bilirubin NEGATIVE (NEGATIVE) 07/10/17 13:11 Urine Urobilinogen 0.2 E.U./dL (0.2 - 1.0) 07/10/17 13:11 Ur Leukocyte Esterase LARGE (NEGATIVE) H 07/10/17 13:11 Urine RBC 5-10 /hpf (0-5) H 07/10/17 13:11 Urine WBC >100 /hpf (0-5) H 07/10/17 13:11 Ur Epithelial Cells RARE /lpf (FEW) 07/10/17 13:11 Urine Bacteria NONE SEEN /hpf (NONE SEEN) 07/10/17 13:11 Blood Type O POSITIVE 07/10/17 16:40 Antibody Screen NEGATIVE 07/10/17 16:40 Crossmatch See Detail 07/10/17 16:40 - Physical Exam Vitals and I&O: Vital Signs Temp 97.8 F 07/12/17 08:00 Pulse 82 07/12/17 10:06 Resp 25 07/12/17 08:00 BP 115/63 07/12/17 08:00 Pulse Ox 98 07/12/17 10:06 Intake & Output 07/11/17 07/12/17 07/12/17 18:59 06:59 18:59 Intake Total 950 250 Output Total 1900 550 Balance -950 -300 Weight (lbs) 52.163 kg 70.307 kg Intake: Intake, IV Amount 100 150 Piperacillin Sodium/ 100 150 Tazobact 2.25 gm In Sodium Chloride 0.9% 50 ml @ 100 mls/hr IV Q6HR [facility] Rx#:[id number] Blood Product 500 Other 350 100 Output: Urine 1900 550 Other: # Bowel Movements 0 0 Weight Source Bedscale Bedscale Active Medications: Current Medications Acetaminophen (Tylenol 650mg/20.3ml Suspension) 650 mg GT Q4HR PRN PRN Reason: MILD PAIN OR TEMP>101 Stop: 09/08/17 19:53 Acetaminophen (Tylenol 650mg/20.3ml Suspension) 1,000 mg GT Q4HR PRN PRN Reason: MOD/SEVERE PAIN Stop: 09/08/17 19:53 Acetaminophen/Hydrocodone Bitart ([place] 10 Mg/325 Mg) 1 tab GT Q6H PRN PRN Reason: Severe Pain Stop: 09/08/17 19:53 Albuterol/Ipratropium (Duoneb Neb) 3 ml HHN Q6HRT [facility] Stop: 09/08/17 18:59 Last Admin: 07/12/17 08:15 Dose: 3 ml Albuterol/Ipratropium (Duoneb Neb) 3 ml HHN Q6HRT [facility] Stop: 09/09/17 00:59 Last Admin: 07/12/17 01:34 Dose: Not Given Artificial Tears (Artificial Tears Ophth Soln) 1 drop EACH EYE BID [facility] Stop: 09/09/17 08:59 Last Admin: 07/12/17 08:50 Dose: 1 drop Ascorbic Acid (Vitamin C) 500 mg GT DAILY [facility] Stop: 09/09/17 08:59 Last Admin: 07/12/17 08:35 Dose: Not Given Calcium Acetate (Phoslo) 667 mg GT BIDWM [facility] Stop: 09/09/17 07:59 Last Admin: 07/12/17 08:35 Dose: Not Given Chlorhexidine Gluconate (Peridex) 15 ml MM 0800,2000 [facility] Stop: 09/08/17 19:59 Last Admin: 07/12/17 08:50 Dose: 15 ml Docusate Sodium (Colace) 100 mg PO DAILY [facility] Stop: 09/09/17 08:59 Last Admin: 07/12/17 08:35 Dose: Not Given Famotidine (Pepcid) 20 mg GT BID [facility] Stop: 09/09/17 08:59 Last Admin: 07/12/17 08:36 Dose: Not Given Piperacillin Sod/Tazobactam (Sod 2.25 gm/ Sodium Chloride) 50 mls @ 100 mls/hr IV Q6HR [facility] Stop: 09/09/17 05:59 Last Infusion: 07/12/17 06:30 Dose: Infused Dextrose/Sodium Chloride (D5-0.45ns) 1,000 mls @ 50 mls/hr IV .Q20H [facility] Stop: 09/09/17 20:29 Last Admin: 07/11/17 20:39 Dose: 50 mls/hr Insulin Aspart (Novolog Insulin Sliding Scale) 0 units SUBQ Q6HR [facility] PRN Reason: Protocol Stop: 09/09/17 00:00 Last Admin: 07/12/17 05:56 Dose: Not Given Insulin Detemir (Levemir Insulin) 10 units SUBQ BID [facility] PRN Reason: Protocol Stop: 09/08/17 20:59 Last Admin: 07/11/17 17:28 Dose: 10 units Lactobacillus Rhamnosus (Culturelle 15b) 1 each PO DAILY [facility] Stop: 09/10/17 08:59 Last Admin: 07/12/17 08:36 Dose: Not Given Magnesium Hydroxide (Milk Of Magnesia) 30 ml GT Q24H PRN PRN Reason: Constipation Stop: 09/08/17 19:53 Miscellaneous (Probiotic Screen) 1 ea MC PRN PRN PRN Reason: PROTOCOL Stop: 09/09/17 14:14 Multivitamins/Vitamin C (Theragran) 1 tab PO DAILY [facility] Stop: 09/09/17 08:59 Last Admin: 07/12/17 08:36 Dose: Not Given Pantoprazole Sodium (Protonix) 40 mg IVP DAILY [facility] Stop: 09/09/17 08:59 Last Admin: 07/12/17 08:49 Dose: 40 mg Potassium Phosphate (K Phos) 500 mg PO Q4H [facility] Stop: 09/09/17 08:14 Last Admin: 07/12/17 08:35 Dose: Not Given Sodium Phosphate (Fleet Enema) 135 ml RC Q24H PRN PRN Reason: Constipation Stop: 09/08/17 19:53 General: no acute distress HEENT: atraumatic, normocephalic, PERRLA Neck: supple Cardiovascular: S1S2, regular Lungs: clear to percussion, rhonchi Abdomen: soft, no tender, no distended, no mass Extremities: no cyanosis, no clubbing, no edema Neurological: awake, alert Skin: intact - Procedures Procedures: Procedures Procedure Code Date RESPIRATORY VENTILATION, 24-96 CONSECUTIVE HOURS [id number] 07/10/17 Infectious Disease Assmt/Plan - Problem List Patient Problems: All Active Problems COFFEE GROUND EMESIS WITH TACHYPNEA (Acute) - Assessment Assessment: 1. Aspiration pneumonia. 2. GI bleed. 3. Vent dependent respiratory failure. 4. Protein calorie malnutrition. - Plan Plan: Continue Zosyn. Nutritional Asmnt/Malnutr-PDOC - Dietary Evaluation Malnutrition Findings (Please click <Entered> for more info): Nutritional Asmnt/Malnutrition Start: 07/11/17 14: 40 Text: Status: Complete Freq: Document 07/11/17 14:40 RASHID (Rec: 07/11/17 15:04 RASHID ANA CRISTINA-[email or web address]) Nutritional Asmnt/Malnutrition Patient General Information Nutritional Screening High Risk Diagnosis hematemesis r/o GI bleed Pertinent Medical Hx/Surgical Hx asthma/COPD, CVA/TIA, dyslipidemia, respiratory failure, PUD/GERD, ESRD, arthritis, dementia, PEG/Gtube Subjective Information Per H&P, pt had N/V/D for 3 days. Pt seen on vent via trach. Pt has Gtube noted. Per nurse note, pt had coffee ground emesis yetserday, today so far no vomiting. Pt kept on NPO for KUB. EGD is scheduled tomorrow. Current Diet Order/ Nutrition Support NPO Pertinent Medications vitamin C, colace, pepcid, novolog, levemir, culturelle, theragran, protoinix, piperacillin, K phos, nacl 0.9 % Pertinent Labs 07/11 Na 139, K 3.4, Cl 110, BUN 89, Cr 1.5, glucose 94, POC 93-98 Nutritional Hx/Data Height 1.57 m Height (Calculated Centimeters) 157.5 Current Weight (lbs) 52.163 kg Weight (Calculated Kilograms) 52.2 Weight (Calculated Grams) 85284.1 [place] Body Weight 110 Body Mass Index (BMI) 21.0 Weight Status Approriate GI Symptoms GI Symptoms None Last BM none Difficult in: None Usual diet at home Per chart, nepro 40ml/hr x 20hr to provide 800ml total volume and 800kcal. Skin Integrity/Comment: balbir mejia 11 Current %PO Negligible < 25% Estimated Nutritional Goals BEE in Kcals: Using Current wt Calories/Kcals/Kg 27-32 Kcals Calculated 0428-6327 Protein: Using Current wt Protein g/k.8-1 Protein Calculated 47-59 Fluid: ml per MD Nutritional Problem 1. Problem Problem altered nutrition related lab values Etiology hx of ESRD Signs/Symptoms: BUN 89, Cr 1.5 Intervention/Recommendation Comments 1. Monitor NPO status. 2. Monitor wt, labs and skin integrity 3. F/U as high risk in 2 days, 07/13 Expected Outcomes/Goals Expected Outcomes/Goals 1. Ptto meet at least 75% of nutritional needs in 2-3 days. 2. Wt stability, skin to remain intact, labs to approach WNL.
[2017-07-12] MEDS ORDERED: Albuterol/Ipratropium Neb 3 ML AERS HHN ONE (12:43)
[2017-07-12] MEDS ORDERED: Lidocaine 2% Gel 5 mL TP ONE (14:00)
[2017-07-12] MEDS ORDERED: Propofol 10 mg/mL 20mL Vial **SURGERY USE ONLY IV ONE (14:00)
--- NOTE | 2017-07-12 15:52 | Operative Report ---
DATE OF SURGERY: 07/12/2017 GASTROENTEROLOGY OPERATIVE REPORT PROCEDURE: Esophagogastroduodenoscopy with biopsy. PREOPERATIVE DIAGNOSIS: Gastrointestinal bleed. POSTOPERATIVE DIAGNOSES: 1. Mild reflux esophagitis. 2. Small hiatal hernia. 3. Moderate gastritis of body and antrum, status post biopsy and CLOtest. 4. Intact replacement type G-tube in stomach. 5. Upper gastrointestinal bleed likely from a combination of esophagitis and gastritis, now stopped. INDICATIONS: A 61-year-old female with vent-dependent respiratory failure and tracheostomy placement and dysphagia with G-tube insertion, presenting with upper GI bleed and upper endoscopy is planned today for further evaluation. CONSENT: Informed consent was obtained from the patient's family prior to procedure after explaining risks, benefits, and alternatives including but not limited to infection, bleeding, perforation, and . SEDATION: Monitored anesthesia care by Dr. Kahn. DESCRIPTION OF PROCEDURE AND FINDINGS: The procedure took place as an inpatient at the bedside of the Intensive Care [facility] of [facility]. The patient was kept in a supine position with head of bed slightly elevated. Adequate sedation was achieved by Dr. Kahn. An Olympus diagnostic upper endoscope was advanced via the patient's mouth and into the esophagus. Here, there was mild reflux esophagitis distally. No active bleeding was identified. The Z-line was at approximately 36 cm from the gums. Retroflexion in the stomach revealed a small hiatal hernia. No GE junction mass or varices were identified. Moderate gastropathy was identified in the body and antrum of the stomach. Biopsy obtained from antrum and mid body submitted for CLOtest as well as pathology. An replacement type G-tube was identified and mid body greater curvature of the stomach. The bumper was pushed away from the underlying gastric mucosa and the insertion site appeared intact without ulceration or bleeding lesion. The pyloric channel and duodenum up to second portion appeared normal. The scope was then withdrawn from the patient. The patient tolerated the procedure well. No immediate complications are anticipated. RECOMMENDATIONS: 1. Follow up biopsy results. 2. G-tube feedings tolerated. 3. Protonix. 4. Antiemetics as needed. 5. Monitor hemoglobin and transfuse as necessary. Thank you, Dr. Ludivina Meek for involving us in the care of your patient. If you have any further questions, please call us. [facility]# [id number] MTDD
[2017-07-12] MEDS: Hydrocodone/APAP 10 mg/325 mg Tab GT PRN (23:50)
[2017-07-13] MEDS: INSULIN ASPART SLIDING SCALE 100 UNITS/ML UNIT SUBQ SCH ×4 (00:30→17:42)
[2017-07-13] MEDS: Albuterol/Ipratropium Neb 3 ML AERS HHN SCH ×4 (01:12→19:41)
--- NOTE | 2017-07-13 08:51 | GI Progress Note ---
Subjective - Review of Systems Service Date: 07/13/17 Subjective: Tolerating G tube feeding, no hematemesis Objective - Results Result Diagrams: 07/12/17 04:31 07/12/17 04:31 Recent Labs: Laboratory Last Values WBC 6.1 Th/cmm (4.8-10.8) 07/12/17 04:31 RBC 4.25 Mil/cmm (4.30-5.70) L 07/12/17 04:31 Hgb 11.6 gm/dL (12-16) L 07/12/17 04:31 Hct 35.5 % (41.0-60) L 07/12/17 04:31 MCV 83.4 fl (80-99) 07/12/17 04:31 MCH 27.2 pg (26.0-30.0) 07/12/17 04:31 MCHC Differential 32.6 pg (28.0-36.0) 07/12/17 04:31 RDW 16.5 % (11.5-20.0) 07/12/17 04:31 Plt Count 225 Th/cmm (150-400) 07/12/17 04:31 MPV 6.1 fl 07/12/17 04:31 Neutrophils % 67.0 % (40.0-80.0) 07/12/17 04:31 Band Neutrophils % 6 % (0-10) 07/10/17 14:00 Lymphocytes % 15.5 % (20.0-50.0) L 07/12/17 04:31 Monocytes % 12.0 % (2.0-10.0) H 07/12/17 04:31 Eosinophils % 5.4 % (0.0-5.0) H 07/12/17 04:31 Basophils % 0.1 % (0.0-2.0) 07/12/17 04:31 Neutrophils (Manual) 75 % (40-80) 07/10/17 14:00 Lymphocytes 10 % (20-50) L 07/10/17 14:00 Monocytes 6 % (2-10) 07/10/17 14:00 Eosinophils 3 % (0-5) 07/10/17 14:00 Basophils 0 % (0-3) 07/10/17 14:00 PT 11.5 SECONDS (9.5-11.5) 07/11/17 08:50 INR 1.10 (0.5-1.4) 07/11/17 08:50 PTT (Actin FS) 35.6 SECONDS (26.0-38.0) 07/10/17 14:00 Sodium 137 mEq/L (136-145) 07/12/17 04:31 Potassium 4.1 mEq/L (3.5-5.1) 07/12/17 04:31 Chloride 110 mEq/L (98-107) H 07/12/17 04:31 Carbon Dioxide 15.7 mEq/L (21.0-31.0) L 07/12/17 04:31 Anion Gap 15.4 (7.0-16.0) 07/12/17 04:31 BUN 81 mg/dL (7-25) H* 07/12/17 04:31 Creatinine 1.6 mg/dL (0.7-1.3) H 07/12/17 04:31 Est GFR ( Amer) 56.8 ml/min (>90) 07/12/17 04:31 Est GFR (Non-Af Amer) 46.9 ml/min 07/12/17 04:31 BUN/Creatinine Ratio 50.6 07/12/17 04:31 Glucose 116 mg/dL (70-105) H D 07/12/17 06:59 POC Glucose 145 MG/DL (70 - 105) H 07/13/17 05:33 Whole Bld Lactic Acid 0.97 mmol/L (0.60-1.99) 07/10/17 14:00 Calcium 9.4 mg/dL (8.6-10.3) 07/12/17 04:31 Total Bilirubin 0.5 mg/dL (0.3-1.0) 07/10/17 14:00 AST 59 U/L (13-39) H 07/10/17 14:00 ALT 60 U/L (7-52) H 07/10/17 14:00 Alkaline Phosphatase 735 U/L (34-104) H 07/10/17 14:00 Creatine Kinase 35 U/L (30-223) 07/10/17 14:00 Troponin I 0.04 ng/mL (0.01-0.05) 07/10/17 14:00 B-Natriuretic Peptide 195.0 pg/mL (5.0-100.0) H 07/10/17 14:00 Total Protein 7.0 gm/dL (6.0-8.3) 07/10/17 14:00 Albumin 2.9 gm/dL (4.2-5.5) L 07/10/17 14:00 Globulin 4.1 gm/dL 07/10/17 14:00 Albumin/Globulin Ratio 0.7 (1.0-1.8) L 07/10/17 14:00 Triglycerides 46 mg/dL (<150) 07/10/17 14:00 Cholesterol 65 mg/dL (<200) 07/10/17 14:00 LDL Cholesterol Direct 32 mg/dL (75-193) L 07/10/17 14:00 HDL Cholesterol 23 mg/dL (23-92) 07/10/17 14:00 Amylase 45 U/L (29-103) 07/10/17 14:00 Lipase 13 U/L (11-82) 07/10/17 14:00 Urine Source CLEAN C 07/10/17 13:11 Urine Color YELLOW 07/10/17 13:11 Urine Clarity TURBID (CLEAR) 07/10/17 13:11 Urine pH 6.0 (4.6 - 8.0) 07/10/17 13:11 Ur Specific [place] 1.010 (1.005-1.030) 07/10/17 13:11 Urine Protein 100 mg/dL (NEGATIVE) H 07/10/17 13:11 Urine Glucose (UA) NEGATIVE mg/dL (NEGATIVE) 07/10/17 13:11 Urine Ketones NEGATIVE mg/dL (NEGATIVE) 07/10/17 13:11 Urine Blood MODERATE (NEGATIVE) H 07/10/17 13:11 Urine Nitrate NEGATIVE (NEGATIVE) 07/10/17 13:11 Urine Bilirubin NEGATIVE (NEGATIVE) 07/10/17 13:11 Urine Urobilinogen 0.2 E.U./dL (0.2 - 1.0) 07/10/17 13:11 Ur Leukocyte Esterase LARGE (NEGATIVE) H 07/10/17 13:11 Urine RBC 5-10 /hpf (0-5) H 07/10/17 13:11 Urine WBC >100 /hpf (0-5) H 07/10/17 13:11 Ur Epithelial Cells RARE /lpf (FEW) 07/10/17 13:11 Urine Bacteria NONE SEEN /hpf (NONE SEEN) 07/10/17 13:11 Blood Type O POSITIVE 07/10/17 16:40 Antibody Screen NEGATIVE 07/10/17 16:40 Crossmatch See Detail 07/10/17 16:40 - Physical Exam Vitals and I&O: Vital Signs Temp 97.8 F 07/13/17 04:00 Pulse 67 07/13/17 07:12 Resp 23 07/13/17 06:00 BP 95/53 07/13/17 06:00 Pulse Ox 100 07/13/17 07:12 Intake & Output 07/12/17 07/13/17 07/13/17 18:59 06:59 18:59 Intake Total 50 250 Output Total 500 Balance 50 -250 Weight (lbs) 70.443 kg Intake: Intake, IV Amount 50 150 Piperacillin Sodium/ 50 150 Tazobact 2.25 gm In Sodium Chloride 0.9% 50 ml @ 100 mls/hr IV Q6HR [facility] Rx#:[id number] Tube Feeding 100 Output: Urine 500 Other: Stool Characteristics Soft Weight Source Bedscale Active Medications: Current Medications Acetaminophen (Tylenol 650mg/20.3ml Suspension) 650 mg GT Q4HR PRN PRN Reason: MILD PAIN OR TEMP>101 Stop: 09/08/17 19:53 Acetaminophen (Tylenol 650mg/20.3ml Suspension) 1,000 mg GT Q4HR PRN PRN Reason: MOD/SEVERE PAIN Stop: 09/08/17 19:53 Acetaminophen/Hydrocodone Bitart ([place] 10 Mg/325 Mg) 1 tab GT Q6H PRN PRN Reason: Severe Pain Stop: 09/08/17 19:53 Last Admin: 07/12/17 23:50 Dose: 1 tab Albuterol/Ipratropium (Duoneb Neb) 3 ml HHN Q6HRT [facility] Stop: 09/08/17 18:59 Last Admin: 07/13/17 07:11 Dose: 3 ml Albuterol/Ipratropium (Duoneb Neb) 3 ml HHN Q6HRT [facility] Stop: 09/09/17 00:59 Last Admin: 07/12/17 21:22 Dose: Not Given Artificial Tears (Artificial Tears Ophth Soln) 1 drop EACH EYE BID [facility] Stop: 09/09/17 08:59 Last Admin: 07/12/17 18:00 Dose: 1 drop Ascorbic Acid (Vitamin C) 500 mg GT DAILY [facility] Stop: 09/09/17 08:59 Last Admin: 07/12/17 08:35 Dose: Not Given Calcium Acetate (Phoslo) 667 mg GT BIDWM [facility] Stop: 09/09/17 07:59 Last Admin: 07/12/17 18:38 Dose: 667 mg Chlorhexidine Gluconate (Peridex) 15 ml MM 0800,2000 [facility] Stop: 09/08/17 19:59 Last Admin: 07/12/17 21:56 Dose: 15 ml Docusate Sodium (Colace) 100 mg PO DAILY [facility] Stop: 09/09/17 08:59 Last Admin: 07/12/17 08:35 Dose: Not Given Famotidine (Pepcid) 20 mg GT BID [facility] Stop: 09/09/17 08:59 Last Admin: 07/12/17 18:38 Dose: 20 mg Piperacillin Sod/Tazobactam (Sod 2.25 gm/ Sodium Chloride) 50 mls @ 100 mls/hr IV Q6HR [facility] Stop: 09/09/17 05:59 Last Infusion: 07/13/17 05:56 Dose: Infused Dextrose/Sodium Chloride (D5-0.45ns) 1,000 mls @ 50 mls/hr IV .Q20H [facility] Stop: 09/09/17 20:29 Last Admin: 07/11/17 20:39 Dose: 50 mls/hr Insulin Aspart (Novolog Insulin Sliding Scale) 0 units SUBQ Q6HR [facility] PRN Reason: Protocol Stop: 09/09/17 00:00 Last Admin: 07/13/17 05:51 Dose: Not Given Insulin Detemir (Levemir Insulin) 10 units SUBQ BID [facility] PRN Reason: Protocol Stop: 09/08/17 20:59 Last Admin: 07/12/17 17:20 Dose: Not Given Lactobacillus Rhamnosus (Culturelle 15b) 1 each PO DAILY [facility] Stop: 09/10/17 08:59 Last Admin: 07/12/17 08:36 Dose: Not Given Magnesium Hydroxide (Milk Of Magnesia) 30 ml GT Q24H PRN PRN Reason: Constipation Stop: 09/08/17 19:53 Miscellaneous (Probiotic Screen) 1 ea MC PRN PRN PRN Reason: PROTOCOL Stop: 09/09/17 14:14 Multivitamins/Vitamin C (Theragran) 1 tab PO DAILY [facility] Stop: 09/09/17 08:59 Last Admin: 07/12/17 08:36 Dose: Not Given Mupirocin (Bactroban Oint) 1 appl NS BID [facility] Stop: 07/17/17 09:01 Last Admin: 07/12/17 18:38 Dose: 1 appl Pantoprazole Sodium (Protonix) 40 mg IVP DAILY [facility] Stop: 09/09/17 08:59 Last Admin: 07/12/17 08:49 Dose: 40 mg Potassium Phosphate (K Phos) 500 mg PO Q4H [facility] Stop: 09/09/17 08:14 Last Admin: 07/13/17 04:27 Dose: 500 mg Sodium Phosphate (Fleet Enema) 135 ml RC Q24H PRN PRN Reason: Constipation Stop: 09/08/17 19:53 General: Alert HEENT: Atraumatic Neck: Supple Cardiovascular: Regular rate Abdomen: Bowel sounds, Soft, no Tender, no Hepatomegaly, no Splenomegaly, no Distended, no Rebound, no Mass, no Guarding - Procedures Procedures: Procedures Procedure Code Date RESPIRATORY VENTILATION, 24-96 CONSECUTIVE HOURS [id number] 07/10/17 Assessment/Plan - Problem List Patient Problems: All Active Problems COFFEE GROUND EMESIS WITH TACHYPNEA (Acute) - Assessment Assessment: # Coffee ground emesis # Dementia # Dysphagia with G tube EGD on 07/12 showed esophagitis, gastritis, hiatal hernia, intact G tube. No active bleeding. Coffee grounds likely 2/2 esophagitis and gastritis. Plan: - cont G tube feeding as tolerated - cont protonix - anti emetics as needed - trend hgb, transfuse as needed to keep > 7
[2017-07-13] MEDS: Lactobacillus Rhamnosus GG 15 Billion CFU CAP.SPRINK PO SCH (10:06)
[2017-07-13] MEDS: Multivitamin Tab PO SCH (10:06)
[2017-07-13] MEDS: Polyvinyl Alcohol Ophth Soln 15 mL Bottle EACH EYE SCH ×2 (10:41→18:22)
[2017-07-13] MEDS: Chlorhexidine Gluconate 0.12% 15mL Mouthwash MM SCH ×2 (10:42→20:17)
[2017-07-13] MEDS ORDERED: Ascorbic Acid 500 mg/5 mL UDC PO SCH (11:39)
[2017-07-13] MEDS: Insulin Detemir 100 units/mL 10mL Vial SUBQ SCH (11:45)
--- NOTE | 2017-07-13 23:30 | Infectious Disease Prog Note ---
Infectious Disease Subjective - Review of Systems Service Date: 07/13/17 Subjective: There is no new change. Infectious Disease Objective - Results Result Diagrams: 07/12/17 04:31 07/12/17 04:31 Recent Labs: Laboratory Last Values WBC 6.1 Th/cmm (4.8-10.8) 07/12/17 04:31 RBC 4.25 Mil/cmm (4.30-5.70) L 07/12/17 04:31 Hgb 11.6 gm/dL (12-16) L 07/12/17 04:31 Hct 35.5 % (41.0-60) L 07/12/17 04:31 MCV 83.4 fl (80-99) 07/12/17 04:31 MCH 27.2 pg (26.0-30.0) 07/12/17 04:31 MCHC Differential 32.6 pg (28.0-36.0) 07/12/17 04:31 RDW 16.5 % (11.5-20.0) 07/12/17 04:31 Plt Count 225 Th/cmm (150-400) 07/12/17 04:31 MPV 6.1 fl 07/12/17 04:31 Neutrophils % 67.0 % (40.0-80.0) 07/12/17 04:31 Band Neutrophils % 6 % (0-10) 07/10/17 14:00 Lymphocytes % 15.5 % (20.0-50.0) L 07/12/17 04:31 Monocytes % 12.0 % (2.0-10.0) H 07/12/17 04:31 Eosinophils % 5.4 % (0.0-5.0) H 07/12/17 04:31 Basophils % 0.1 % (0.0-2.0) 07/12/17 04:31 Neutrophils (Manual) 75 % (40-80) 07/10/17 14:00 Lymphocytes 10 % (20-50) L 07/10/17 14:00 Monocytes 6 % (2-10) 07/10/17 14:00 Eosinophils 3 % (0-5) 07/10/17 14:00 Basophils 0 % (0-3) 07/10/17 14:00 PT 11.5 SECONDS (9.5-11.5) 07/11/17 08:50 INR 1.10 (0.5-1.4) 07/11/17 08:50 PTT (Actin FS) 35.6 SECONDS (26.0-38.0) 07/10/17 14:00 Sodium 137 mEq/L (136-145) 07/12/17 04:31 Potassium 4.1 mEq/L (3.5-5.1) 07/12/17 04:31 Chloride 110 mEq/L (98-107) H 07/12/17 04:31 Carbon Dioxide 15.7 mEq/L (21.0-31.0) L 07/12/17 04:31 Anion Gap 15.4 (7.0-16.0) 07/12/17 04:31 BUN 81 mg/dL (7-25) H* 07/12/17 04:31 Creatinine 1.6 mg/dL (0.7-1.3) H 07/12/17 04:31 Est GFR ( Amer) 56.8 ml/min (>90) 07/12/17 04:31 Est GFR (Non-Af Amer) 46.9 ml/min 07/12/17 04:31 BUN/Creatinine Ratio 50.6 07/12/17 04:31 Glucose 116 mg/dL (70-105) H D 07/12/17 06:59 POC Glucose 145 MG/DL (70 - 105) H 07/13/17 05:33 Whole Bld Lactic Acid 0.97 mmol/L (0.60-1.99) 07/10/17 14:00 Calcium 9.4 mg/dL (8.6-10.3) 07/12/17 04:31 Total Bilirubin 0.5 mg/dL (0.3-1.0) 07/10/17 14:00 AST 59 U/L (13-39) H 07/10/17 14:00 ALT 60 U/L (7-52) H 07/10/17 14:00 Alkaline Phosphatase 735 U/L (34-104) H 07/10/17 14:00 Creatine Kinase 35 U/L (30-223) 07/10/17 14:00 Troponin I 0.04 ng/mL (0.01-0.05) 07/10/17 14:00 B-Natriuretic Peptide 195.0 pg/mL (5.0-100.0) H 07/10/17 14:00 Total Protein 7.0 gm/dL (6.0-8.3) 07/10/17 14:00 Albumin 2.9 gm/dL (4.2-5.5) L 07/10/17 14:00 Globulin 4.1 gm/dL 07/10/17 14:00 Albumin/Globulin Ratio 0.7 (1.0-1.8) L 07/10/17 14:00 Triglycerides 46 mg/dL (<150) 07/10/17 14:00 Cholesterol 65 mg/dL (<200) 07/10/17 14:00 LDL Cholesterol Direct 32 mg/dL (75-193) L 07/10/17 14:00 HDL Cholesterol 23 mg/dL (23-92) 07/10/17 14:00 Amylase 45 U/L (29-103) 07/10/17 14:00 Lipase 13 U/L (11-82) 07/10/17 14:00 Urine Source CLEAN C 07/10/17 13:11 Urine Color YELLOW 07/10/17 13:11 Urine Clarity TURBID (CLEAR) 07/10/17 13:11 Urine pH 6.0 (4.6 - 8.0) 07/10/17 13:11 Ur Specific [place] 1.010 (1.005-1.030) 07/10/17 13:11 Urine Protein 100 mg/dL (NEGATIVE) H 07/10/17 13:11 Urine Glucose (UA) NEGATIVE mg/dL (NEGATIVE) 07/10/17 13:11 Urine Ketones NEGATIVE mg/dL (NEGATIVE) 07/10/17 13:11 Urine Blood MODERATE (NEGATIVE) H 07/10/17 13:11 Urine Nitrate NEGATIVE (NEGATIVE) 07/10/17 13:11 Urine Bilirubin NEGATIVE (NEGATIVE) 07/10/17 13:11 Urine Urobilinogen 0.2 E.U./dL (0.2 - 1.0) 07/10/17 13:11 Ur Leukocyte Esterase LARGE (NEGATIVE) H 07/10/17 13:11 Urine RBC 5-10 /hpf (0-5) H 07/10/17 13:11 Urine WBC >100 /hpf (0-5) H 07/10/17 13:11 Ur Epithelial Cells RARE /lpf (FEW) 07/10/17 13:11 Urine Bacteria NONE SEEN /hpf (NONE SEEN) 07/10/17 13:11 Helicobacter pylori Ab NEGATIVE (NEGATIVE) 07/12/17 14:20 Blood Type O POSITIVE 07/10/17 16:40 Antibody Screen NEGATIVE 07/10/17 16:40 Crossmatch See Detail 07/10/17 16:40 - Physical Exam Vitals and I&O: Vital Signs Temp 97.2 F 07/13/17 20:00 Pulse 87 07/13/17 22:00 Resp 25 07/13/17 22:00 BP 123/62 07/13/17 22:00 Pulse Ox 100 07/13/17 22:00 Intake & Output 07/13/17 07/13/17 07/14/17 06:59 18:59 06:59 Intake Total 250 350 50 Output Total 500 870 Balance -250 -520 50 Weight (lbs) 70.443 kg 73.482 kg Intake: Intake, IV Amount 150 50 50 Piperacillin Sodium/ 150 50 50 Tazobact 2.25 gm In Sodium Chloride 0.9% 50 ml @ 100 mls/hr IV Q6HR [facility] Rx#:[id number] Tube Feeding 100 Other 300 Output: Urine 500 850 Stool 20 Other: # Bowel Movements 1 Stool Characteristics Soft Soft Brown Weight Source Bedscale Patient stated Active Medications: Current Medications Acetaminophen (Tylenol 650mg/20.3ml Suspension) 650 mg GT Q4HR PRN PRN Reason: MILD PAIN OR TEMP>101 Stop: 09/08/17 19:53 Acetaminophen (Tylenol 650mg/20.3ml Suspension) 1,000 mg GT Q4HR PRN PRN Reason: MOD/SEVERE PAIN Stop: 09/08/17 19:53 Acetaminophen/Hydrocodone Bitart ([place] 10 Mg/325 Mg) 1 tab GT Q6H PRN PRN Reason: Severe Pain Stop: 09/08/17 19:53 Last Admin: 07/12/17 23:50 Dose: 1 tab Albuterol/Ipratropium (Duoneb Neb) 3 ml HHN Q6HRT [facility]KAYLA Stop: 09/08/17 18:59 Last Admin: 07/13/17 19:41 Dose: 3 ml Albuterol/Ipratropium (Duoneb Neb) 3 ml HHN Q6HRT [facility]KAYLA Stop: 09/09/17 00:59 Last Admin: 07/12/17 21:22 Dose: Not Given Artificial Tears (Artificial Tears Ophth Soln) 1 drop EACH EYE BID [facility]KAYLA Stop: 09/09/17 08:59 Last Admin: 07/13/17 18:22 Dose: 1 drop Ascorbic Acid (Vitamin C) 500 mg PO DAILY [facility] Stop: 09/11/17 11:37 Calcium Acetate (Phoslo) 667 mg GT BIDWM MIKAYLA Stop: 09/09/17 07:59 Last Admin: 07/13/17 17:29 Dose: 667 mg Chlorhexidine Gluconate (Peridex) 15 ml MM 0800,1999 [facility]LA Stop: 09/08/17 19:59 Last Admin: 07/13/17 20:17 Dose: 15 ml Docusate Sodium (Colace) 100 mg PO DAILY MIKAYLA Stop: 09/09/17 08:59 Last Admin: 07/13/17 10:06 Dose: 100 mg Famotidine (Pepcid) 20 mg GT BID [facility]KAYLA Stop: 09/09/17 08:59 Last Admin: 07/13/17 17:29 Dose: 20 mg Piperacillin Sod/Tazobactam (Sod 2.25 gm/ Sodium Chloride) 50 mls @ 100 mls/hr IV Q6HR [facility] Stop: 09/09/17 05:59 Last Infusion: 07/13/17 19:53 Dose: Infused Dextrose/Sodium Chloride (D5-0.45ns) 1,000 mls @ 50 mls/hr IV .Q20H [facility] Stop: 09/09/17 20:29 Last Admin: 07/11/17 20:39 Dose: 50 mls/hr Insulin Aspart (Novolog Insulin Sliding Scale) 0 units SUBQ Q6HR [facility]KAYLA PRN Reason: Protocol Stop: 09/09/17 00:00 Last Admin: 07/13/17 17:42 Dose: Not Given Lactobacillus Rhamnosus (Culturelle 15b) 1 each PO DAILY MIKAYLA Stop: 09/10/17 08:59 Last Admin: 07/13/17 10:06 Dose: 1 each Magnesium Hydroxide (Milk Of Magnesia) 30 ml GT Q24H PRN PRN Reason: Constipation Stop: 09/08/17 19:53 Miscellaneous (Probiotic Screen) 1 ea MC PRN PRN PRN Reason: PROTOCOL Stop: 09/09/17 14:14 Multivitamins/Vitamin C (Theragran) 1 tab PO DAILY [facility] Stop: 09/09/17 08:59 Last Admin: 07/13/17 10:06 Dose: 1 tab Mupirocin (Bactroban Oint) 1 appl NS BID [facility] Stop: 07/17/17 09:01 Last Admin: 07/13/17 18:22 Dose: 1 appl Pantoprazole Sodium (Protonix) 40 mg IVP DAILY [facility] Stop: 09/09/17 08:59 Last Admin: 07/13/17 10:06 Dose: 40 mg Potassium Phosphate (K Phos) 500 mg PO Q4H [facility] Stop: 09/09/17 08:14 Last Admin: 07/13/17 20:17 Dose: 500 mg Sodium Phosphate (Fleet Enema) 135 ml RC Q24H PRN PRN Reason: Constipation Stop: 09/08/17 19:53 General: no acute distress, well developed, well nourished HEENT: atraumatic, normocephalic, PERRLA Neck: tracheostomy Cardiovascular: S1S2, regular Lungs: clear to percussion, rhonchi Abdomen: soft, no tender, no distended, no rebound Extremities: no cyanosis, no clubbing, no edema Neurological: awake, alert Skin: intact - Procedures Procedures: Procedures Procedure Code Date RESPIRATORY VENTILATION, 24-96 CONSECUTIVE HOURS [id number] 07/10/17 Infectious Disease Assmt/Plan - Problem List Patient Problems: All Active Problems COFFEE GROUND EMESIS WITH TACHYPNEA (Acute) - Assessment Assessment: 1. Aspiration pneumonia. 2. GI bleed. 3. Vent dependent respiratory failure. 4. Protein calorie malnutrition. - Plan Plan: Continue Zosyn. Nutritional Asmnt/Malnutr-PDOC - Dietary Evaluation Malnutrition Findings (Please click <Entered> for more info): Nutritional Asmnt/Malnutrition Start: 07/11/17 14: 40 Text: Status: Complete Freq: Document 07/11/17 14:40 RASHID (Rec: 07/11/17 15:04 RASHDI DE LA [email or web address]) Nutritional Asmnt/Malnutrition Patient General Information Nutritional Screening High Risk Diagnosis hematemesis r/o GI bleed Pertinent Medical Hx/Surgical Hx asthma/COPD, CVA/TIA, dyslipidemia, respiratory failure, PUD/GERD, ESRD, arthritis, dementia, PEG/Gtube Subjective Information Per H&P, pt had N/V/D for 3 days. Pt seen on vent via trach. Pt has Gtube noted. Per nurse note, pt had coffee ground emesis yetserday, today so far no vomiting. Pt kept on NPO for KUB. EGD is scheduled tomorrow. Current Diet Order/ Nutrition Support NPO Pertinent Medications vitamin C, colace, pepcid, novolog, levemir, culturelle, theragran, protoinix, piperacillin, K phos, nacl 0.9 % Pertinent Labs 07/11 Na 139, K 3.4, Cl 110, BUN 89, Cr 1.5, glucose 94, POC 93-98 Nutritional Hx/Data Height 1.57 m Height (Calculated Centimeters) 157.5 Current Weight (lbs) 52.163 kg Weight (Calculated Kilograms) 52.2 Weight (Calculated Grams) 20221.1 [place] Body Weight 110 Body Mass Index (BMI) 21.0 Weight Status Approriate GI Symptoms GI Symptoms None Last BM none Difficult in: None Usual diet at home Per chart, nepro 40ml/hr x 20hr to provide 800ml total volume and 800kcal. Skin Integrity/Comment: elastic roberto 11 Current %PO Negligible < 25% Estimated Nutritional Goals BEE in Kcals: Using Current wt Calories/Kcals/Kg 27-32 Kcals Calculated 2431-0479 Protein: Using Current wt Protein g/k.8-1 Protein Calculated 47-59 Fluid: ml per MD Nutritional Problem 1. Problem Problem altered nutrition related lab values Etiology hx of ESRD Signs/Symptoms: BUN 89, Cr 1.5 Intervention/Recommendation Comments 1. Monitor NPO status. 2. Monitor wt, labs and skin integrity 3. F/U as high risk in 2 days, 07/13 Expected Outcomes/Goals Expected Outcomes/Goals 1. Ptto meet at least 75% of nutritional needs in 2-3 days. 2. Wt stability, skin to remain intact, labs to approach WNL.
[2017-07-14] MEDS: INSULIN ASPART SLIDING SCALE 100 UNITS/ML UNIT SUBQ SCH ×4 (00:06→17:21)
[2017-07-14] MEDS: Albuterol/Ipratropium Neb 3 ML AERS HHN SCH ×5 (01:39→19:35)
--- NOTE | 2017-07-14 01:58 | Progress Notes ---
DATE: 07/13/2017 SUBJECTIVE: The patient was seen in the Intensive Care Unit. The patient is nonverbal and nonreceptive due to medical condition otherwise the patient is in no acute distress. OBJECTIVE: VITAL SIGNS: Temperature 97.6, respirations 71, blood pressure 137/86, respirations 20, 98% via the ventilator. HEENT: Head is atraumatic, normocephalic. Eyes: Right eye sluggish left pupil is still reactive to light and accommodation. NECK: Supple. No JVD. The patient has a tracheostomy connected to ventilator. GASTROINTESTINAL: Soft and nontender without guarding. Positive bowel sounds. The patient has a gastrostomy tube in place. MUSCULOSKELETAL: No clubbing, no cyanosis. The patient has bilateral upper and lower extremity contractures. ASSESSMENT: 1. Upper gastrointestinal bleed secondary to gastritis. 2. Ventilator dependent respiratory failure. 3. Dysphagia. 4. Hypertension. 5. Gastroesophageal reflux disease. 6. Diabetes mellitus. PLAN: We will continue to monitor the patient's hemoglobin and hematocrit level. The patient currently has an IV access on the foot side due to poor venous access, we will keep the patient in Intensive Care Unit. Treatment plans were discussed with the patient's nurse. Treatment plans were discussed with Dr. Meek. JOB# [id number]
--- NOTE | 2017-07-14 02:37 | Consultation ---
DATE OF CONSULTATION: 07/11/2017 GASTROENTEROLOGY CONSULTATION TYPE OF CONSULTATION: Gastroenterology. REQUESTING PHYSICIAN: Dr. Ludivina Meek. REASON FOR CONSULTATION: Upper GI bleed. HISTORY OF PRESENT ILLNESS: The patient was noted to have blood in his stools versus dark stools. There was also a question of coffee-ground emesis. He was admitted for possible GI bleeding. PAST MEDICAL HISTORY: Notable for dementia and stroke. MEDICATIONS: Here are Tylenol, [place], DuoNeb nebulizer, vitamin C, PhosLo, Colace, Pepcid, milk of magnesia, probiotics, multivitamin, Protonix, Zosyn, potassium and Fleet enema p.r.n. ALLERGIES: None. SOCIAL HISTORY: No recent tobacco, alcohol, or drugs. FAMILY HISTORY: Noncontributory. REVIEW OF SYSTEMS: A comprehensive 12-point review of system was conducted, and is only present for those signs or symptoms present in the HPI. PHYSICAL EXAMINATION: VITAL SIGNS: Temperature is 96.9, blood pressure is 115/62, pulse is 87, respirations 20, O2 sats 100% on FiO2 40%. GENERAL: The patient is well-developed, chronically ill-appearing male, who is in no acute distress. HEENT: Tracheostomy is intact attached to the ventilator. CARDIOVASCULAR: Regular rate and rhythm. LUNGS: With occasional rhonchi at the bases. ABDOMEN: Soft, nontender, intact G-tube. EXTREMITIES: No edema. RECTAL: Deferred. LABORATORY DATA: WBC 6.3, hemoglobin 11.5, platelet count is 235. Creatinine is 1.5. IMPRESSION: 1. Gastrointestinal bleeding could be from upper versus lower gastrointestinal source. 2. Mild anemia. 3. Vent-dependent respiratory failure and tracheostomy. 4. Dysphagia. RECOMMENDATIONS: 1. Upper endoscopy tomorrow. 2. Check KUB to evaluate for constipation. 3. Protonix. 4. Monitor hemoglobin, transfuse as necessary. 5. Consider colonoscopy if endoscopy is negative and if symptoms of bleeding persist. Thank you, Dr. Ludivina Meek, for involving us in the care of your patient. If you have any further questions, please call us. JOB# [id number] [facility]
[2017-07-14 05:13] LABS: ANION GAP 13.7 (7.0-16.0); BUN - UREA NITROGEN 49 mg/dL (7-25); CARBON DIOXIDE 18.4 mEq/L (21.0-31.0); CHLORIDE 111 mEq/L (98-107); CREATININE - SERUM 1.3 mg/dL (0.7-1.3); GFR AFRICAN-AMERICAN > 60.0 ml/min (>90); GFR NON AFRICAN-AMERICAN 59.6 ml/min; GLUCOSE 152 mg/dL (70-105); POTASSIUM SERUM 4.1 mEq/L (3.5-5.1); SODIUM SERUM 139 mEq/L (136-145)
[2017-07-14 05:16] LABS: % EOSINOPHILS 4.7 % (0.0-5.0); % LYMPHOCYTES 11.9 % (20.0-50.0); % MONOCYTES 3.2 % (2.0-10.0); % NEUTROPHILS 80.2 % (40.0-80.0); EOSINOPHILE ABSOLUTE 0.4 Th/cmm (0.1-0.4); HEMATOCRIT 35.2 % (41.0-60); HEMOGLOBIN 11.5 gm/dL (12-16); MEAN CELL VOLUME 83.5 fl (80-99); MEAN CORPUSCULAR HEMOGLOBIN 27.3 pg (26.0-30.0); MEAN CORPUSCULAR HGB CONC 32.7 pg (28.0-36.0); MEAN PLATELET VOLUME 6.4 fl; MONOCYTE ABSOLUTE 0.3 Th/cmm (0.3-1.0); NEUTROPHILE ABSOLUTE 6.7 Th/cmm (1.8-8.0); PLATELET COUNT 159 Th/cmm (150-400); RED BLOOD COUNT 4.22 Mil/cmm (4.30-5.70); RED CELL DISTRIBUTION WIDTH 16.5 % (11.5-20.0); WHITE BLOOD COUNT 8.4 Th/cmm (4.8-10.8)
--- NOTE | 2017-07-14 08:20 | GI Progress Note ---
Subjective - Review of Systems Service Date: 07/14/17 Subjective: No new events, tolerating feeding Objective - Results Result Diagrams: 07/14/17 04:00 07/14/17 04:00 Recent Labs: Laboratory Last Values WBC 8.4 Th/cmm (4.8-10.8) 07/14/17 04:00 RBC 4.22 Mil/cmm (4.30-5.70) L 07/14/17 04:00 Hgb 11.5 gm/dL (12-16) L 07/14/17 04:00 Hct 35.2 % (41.0-60) L 07/14/17 04:00 MCV 83.5 fl (80-99) 07/14/17 04:00 MCH 27.3 pg (26.0-30.0) 07/14/17 04:00 MCHC Differential 32.7 pg (28.0-36.0) 07/14/17 04:00 RDW 16.5 % (11.5-20.0) 07/14/17 04:00 Plt Count 159 Th/cmm (150-400) 07/14/17 04:00 MPV 6.4 fl 07/14/17 04:00 Neutrophils % 80.2 % (40.0-80.0) H 07/14/17 04:00 Band Neutrophils % 6 % (0-10) 07/10/17 14:00 Lymphocytes % 11.9 % (20.0-50.0) L 07/14/17 04:00 Monocytes % 3.2 % (2.0-10.0) 07/14/17 04:00 Eosinophils % 4.7 % (0.0-5.0) 07/14/17 04:00 Basophils % 0.0 % (0.0-2.0) 07/14/17 04:00 Neutrophils (Manual) 75 % (40-80) 07/10/17 14:00 Lymphocytes 10 % (20-50) L 07/10/17 14:00 Monocytes 6 % (2-10) 07/10/17 14:00 Eosinophils 3 % (0-5) 07/10/17 14:00 Basophils 0 % (0-3) 07/10/17 14:00 PT 11.5 SECONDS (9.5-11.5) 07/11/17 08:50 INR 1.10 (0.5-1.4) 07/11/17 08:50 PTT (Actin FS) 35.6 SECONDS (26.0-38.0) 07/10/17 14:00 Sodium 139 mEq/L (136-145) 07/14/17 04:00 Potassium 4.1 mEq/L (3.5-5.1) 07/14/17 04:00 Chloride 111 mEq/L (98-107) H 07/14/17 04:00 Carbon Dioxide 18.4 mEq/L (21.0-31.0) L 07/14/17 04:00 Anion Gap 13.7 (7.0-16.0) 07/14/17 04:00 BUN 49 mg/dL (7-25) H 07/14/17 04:00 Creatinine 1.3 mg/dL (0.7-1.3) 07/14/17 04:00 Est GFR ( Amer) > 60.0 ml/min (>90) 07/14/17 04:00 Est GFR (Non-Af Amer) 59.6 ml/min 07/14/17 04:00 BUN/Creatinine Ratio 37.7 07/14/17 04:00 Glucose 152 mg/dL (70-105) H 07/14/17 04:00 POC Glucose 175 MG/DL (70 - 105) H 07/14/17 05:33 Whole Bld Lactic Acid 0.97 mmol/L (0.60-1.99) 07/10/17 14:00 Calcium 9.0 mg/dL (8.6-10.3) 07/14/17 04:00 Total Bilirubin 0.5 mg/dL (0.3-1.0) 07/10/17 14:00 AST 59 U/L (13-39) H 07/10/17 14:00 ALT 60 U/L (7-52) H 07/10/17 14:00 Alkaline Phosphatase 735 U/L (34-104) H 07/10/17 14:00 Creatine Kinase 35 U/L (30-223) 07/10/17 14:00 Troponin I 0.04 ng/mL (0.01-0.05) 07/10/17 14:00 B-Natriuretic Peptide 195.0 pg/mL (5.0-100.0) H 07/10/17 14:00 Total Protein 7.0 gm/dL (6.0-8.3) 07/10/17 14:00 Albumin 2.9 gm/dL (4.2-5.5) L 07/10/17 14:00 Globulin 4.1 gm/dL 07/10/17 14:00 Albumin/Globulin Ratio 0.7 (1.0-1.8) L 07/10/17 14:00 Triglycerides 46 mg/dL (<150) 07/10/17 14:00 Cholesterol 65 mg/dL (<200) 07/10/17 14:00 LDL Cholesterol Direct 32 mg/dL (75-193) L 07/10/17 14:00 HDL Cholesterol 23 mg/dL (23-92) 07/10/17 14:00 Amylase 45 U/L (29-103) 07/10/17 14:00 Lipase 13 U/L (11-82) 07/10/17 14:00 Urine Source CLEAN C 07/10/17 13:11 Urine Color YELLOW 07/10/17 13:11 Urine Clarity TURBID (CLEAR) 07/10/17 13:11 Urine pH 6.0 (4.6 - 8.0) 07/10/17 13:11 Ur Specific [place] 1.010 (1.005-1.030) 07/10/17 13:11 Urine Protein 100 mg/dL (NEGATIVE) H 07/10/17 13:11 Urine Glucose (UA) NEGATIVE mg/dL (NEGATIVE) 07/10/17 13:11 Urine Ketones NEGATIVE mg/dL (NEGATIVE) 07/10/17 13:11 Urine Blood MODERATE (NEGATIVE) H 07/10/17 13:11 Urine Nitrate NEGATIVE (NEGATIVE) 07/10/17 13:11 Urine Bilirubin NEGATIVE (NEGATIVE) 07/10/17 13:11 Urine Urobilinogen 0.2 E.U./dL (0.2 - 1.0) 07/10/17 13:11 Ur Leukocyte Esterase LARGE (NEGATIVE) H 07/10/17 13:11 Urine RBC 5-10 /hpf (0-5) H 07/10/17 13:11 Urine WBC >100 /hpf (0-5) H 07/10/17 13:11 Ur Epithelial Cells RARE /lpf (FEW) 04/18/18 13:11 Urine Bacteria NONE SEEN /hpf (NONE SEEN) 07/10/17 13:11 Helicobacter pylori Ab NEGATIVE (NEGATIVE) 07/12/17 14:20 Blood Type O POSITIVE 07/10/17 16:40 Antibody Screen NEGATIVE 07/10/17 16:40 Crossmatch See Detail 07/10/17 16:40 - Physical Exam Vitals and I&O: Vital Signs Temp 97.6 F 07/14/17 06:00 Pulse 83 07/14/17 06:35 Resp 25 07/14/17 08:00 BP 119/63 07/14/17 06:00 Pulse Ox 99 07/14/17 06:35 Intake & Output 07/13/17 07/14/17 07/14/17 18:59 06:59 18:59 Intake Total 350 960 Output Total 870 850 Balance -520 110 Weight (lbs) 73.482 kg 73.482 kg Intake: Intake, IV Amount 50 150 Piperacillin Sodium/ 50 150 Tazobact 2.25 gm In Sodium Chloride 0.9% 50 ml @ 100 mls/hr IV Q6HR [facility] Rx#:[id number] Tube Feeding 660 Other 300 150 Output: Urine 850 850 Stool 20 Other: # Bowel Movements 1 1 Stool Characteristics Soft Soft Brown Brown Weight Source Patient stated Bedscale Active Medications: Current Medications Acetaminophen (Tylenol 650mg/20.3ml Suspension) 650 mg GT Q4HR PRN PRN Reason: MILD PAIN OR TEMP>101 Stop: 09/08/17 19:53 Acetaminophen (Tylenol 650mg/20.3ml Suspension) 1,000 mg GT Q4HR PRN PRN Reason: MOD/SEVERE PAIN Stop: 09/08/17 19:53 Acetaminophen/Hydrocodone Bitart ([place] 10 Mg/325 Mg) 1 tab GT Q6H PRN PRN Reason: Severe Pain Stop: 09/08/17 19:53 Last Admin: 07/12/17 23:50 Dose: 1 tab Albuterol/Ipratropium (Duoneb Neb) 3 ml HHN Q6HRT [facility]KAY[facility] Stop: 09/08/17 18:59 Last Admin: 07/14/17 06:35 Dose: 3 ml Albuterol/Ipratropium (Duoneb Neb) 3 ml HHN Q6HRT [facility] Stop: 09/09/17 00:59 Last Admin: 07/12/17 21:22 Dose: Not Given Artificial Tears (Artificial Tears Ophth Soln) 1 drop EACH EYE BID MIKAYLA Stop: 09/09/17 08:59 Last Admin: 07/13/17 18:22 Dose: 1 drop Ascorbic Acid (Vitamin C) 500 mg PO DAILY [facility] Stop: 09/11/17 11:37 Calcium Acetate (Phoslo) 667 mg GT BIDWM MIKAYLA Stop: 09/09/17 07:59 Last Admin: 07/13/17 17:29 Dose: 667 mg Chlorhexidine Gluconate (Peridex) 15 ml MM 08,1999 MIKAYLA Stop: 09/08/17 19:59 Last Admin: 07/13/17 20:17 Dose: 15 ml Docusate Sodium (Colace) 100 mg PO DAILY [facility] Stop: 09/09/17 08:59 Last Admin: 07/13/17 10:06 Dose: 100 mg Famotidine (Pepcid) 20 mg GT BID [facility] Stop: 09/09/17 08:59 Last Admin: 07/13/17 17:29 Dose: 20 mg Piperacillin Sod/Tazobactam (Sod 2.25 gm/ Sodium Chloride) 50 mls @ 100 mls/hr IV Q6HR [facility] Stop: 09/09/17 05:59 Last Infusion: 07/14/17 06:05 Dose: Infused Dextrose/Sodium Chloride (D5-0.45ns) 1,000 mls @ 50 mls/hr IV .Q20H MKIAY[facility] Stop: 09/09/17 20:29 Last Admin: 07/11/17 20:39 Dose: 50 mls/hr Insulin Aspart (Novolog Insulin Sliding Scale) 0 units SUBQ Q6HR MIKAYLA PRN Reason: Protocol Stop: 09/09/17 00:00 Last Admin: 07/14/17 05:35 Dose: 3 units Lactobacillus Rhamnosus (Culturelle 15b) 1 each PO DAILY MIKAY[facility] Stop: 09/10/17 08:59 Last Admin: 07/13/17 10:06 Dose: 1 each Magnesium Hydroxide (Milk Of Magnesia) 30 ml GT Q24H PRN PRN Reason: Constipation Stop: 09/08/17 19:53 Miscellaneous (Probiotic Screen) 1 ea PRN PRN PRN Reason: PROTOCOL Stop: 09/09/17 14:14 Multivitamins/Vitamin C (Theragran) 1 tab PO DAILY [facility] Stop: 09/09/17 08:59 Last Admin: 07/13/17 10:06 Dose: 1 tab Mupirocin (Bactroban Oint) 1 appl NS BID [facility] Stop: 07/17/17 09:01 Last Admin: 07/13/17 18:22 Dose: 1 appl Pantoprazole Sodium (Protonix) 40 mg IVP DAILY [facility] Stop: 09/09/17 08:59 Last Admin: 07/13/17 10:06 Dose: 40 mg Potassium Phosphate (K Phos) 500 mg PO Q4H [facility] Stop: 09/09/17 08:14 Last Admin: 07/14/17 04:35 Dose: 500 mg Sodium Phosphate (Fleet Enema) 135 ml RC Q24H PRN PRN Reason: Constipation Stop: 09/08/17 19:53 General: Alert HEENT: Atraumatic Neck: Supple Cardiovascular: Regular rate Abdomen: Bowel sounds, Soft, no Tender, no Hepatomegaly, no Splenomegaly, no Distended, no Rebound, no Mass, no Guarding - Procedures Procedures: Procedures Procedure Code Date RESPIRATORY VENTILATION, 24-96 CONSECUTIVE HOURS [id number] 07/10/17 Assessment/Plan - Problem List Patient Problems: All Active Problems COFFEE GROUND EMESIS WITH TACHYPNEA (Acute) - Assessment Assessment: # Coffee ground emesis # Dementia # Dysphagia with G tube EGD on 07/12 showed esophagitis, gastritis, hiatal hernia, intact G tube. No active bleeding. Coffee grounds likely 2/2 esophagitis and gastritis. Plan: - cont G tube feeding as tolerated - Await biopsy results - cont protonix bid for 30 days, then daily - anti emetics as needed - trend hgb, transfuse as needed to keep > 7
--- NOTE | 2017-07-14 08:44 | General Progress Note ---
Subjective - Review of Systems Events since last encounter: patient with no distress no change Objective - Results Result Diagrams: 07/14/17 04:00 07/14/17 04:00 Recent Labs: Laboratory Last Values WBC 8.4 Th/cmm (4.8-10.8) 07/14/17 04:00 RBC 4.22 Mil/cmm (4.30-5.70) L 07/14/17 04:00 Hgb 11.5 gm/dL (12-16) L 07/14/17 04:00 Hct 35.2 % (41.0-60) L 07/14/17 04:00 MCV 83.5 fl (80-99) 07/14/17 04:00 MCH 27.3 pg (26.0-30.0) 07/14/17 04:00 MCHC Differential 32.7 pg (28.0-36.0) 07/14/17 04:00 RDW 16.5 % (11.5-20.0) 07/14/17 04:00 Plt Count 159 Th/cmm (150-400) 07/14/17 04:00 MPV 6.4 fl 07/14/17 04:00 Neutrophils % 80.2 % (40.0-80.0) H 07/14/17 04:00 Band Neutrophils % 6 % (0-10) 07/10/17 14:00 Lymphocytes % 11.9 % (20.0-50.0) L 07/14/17 04:00 Monocytes % 3.2 % (2.0-10.0) 07/14/17 04:00 Eosinophils % 4.7 % (0.0-5.0) 07/14/17 04:00 Basophils % 0.0 % (0.0-2.0) 07/14/17 04:00 Neutrophils (Manual) 75 % (40-80) 07/10/17 14:00 Lymphocytes 10 % (20-50) L 07/10/17 14:00 Monocytes 6 % (2-10) 07/10/17 14:00 Eosinophils 3 % (0-5) 07/10/17 14:00 Basophils 0 % (0-3) 07/10/17 14:00 PT 11.5 SECONDS (9.5-11.5) 07/11/17 08:50 INR 1.10 (0.5-1.4) 07/11/17 08:50 PTT (Actin FS) 35.6 SECONDS (26.0-38.0) 07/10/17 14:00 Sodium 139 mEq/L (136-145) 07/14/17 04:00 Potassium 4.1 mEq/L (3.5-5.1) 07/14/17 04:00 Chloride 111 mEq/L (98-107) H 07/14/17 04:00 Carbon Dioxide 18.4 mEq/L (21.0-31.0) L 07/14/17 04:00 Anion Gap 13.7 (7.0-16.0) 07/14/17 04:00 BUN 49 mg/dL (7-25) H 07/14/17 04:00 Creatinine 1.3 mg/dL (0.7-1.3) 07/14/17 04:00 Est GFR ( Amer) > 60.0 ml/min (>90) 07/14/17 04:00 Est GFR (Non-Af Amer) 59.6 ml/min 07/14/17 04:00 BUN/Creatinine Ratio 37.7 07/14/17 04:00 Glucose 152 mg/dL (70-105) H 07/14/17 04:00 POC Glucose 175 MG/DL (70 - 105) H 07/14/17 05:33 Whole Bld Lactic Acid 0.97 mmol/L (0.60-1.99) 07/10/17 14:00 Calcium 9.0 mg/dL (8.6-10.3) 07/14/17 04:00 Total Bilirubin 0.5 mg/dL (0.3-1.0) 07/10/17 14:00 AST 59 U/L (13-39) H 07/10/17 14:00 ALT 60 U/L (7-52) H 07/10/17 14:00 Alkaline Phosphatase 735 U/L (34-104) H 07/10/17 14:00 Creatine Kinase 35 U/L (30-223) 07/10/17 14:00 Troponin I 0.04 ng/mL (0.01-0.05) 07/10/17 14:00 B-Natriuretic Peptide 195.0 pg/mL (5.0-100.0) H 07/10/17 14:00 Total Protein 7.0 gm/dL (6.0-8.3) 07/10/17 14:00 Albumin 2.9 gm/dL (4.2-5.5) L 07/10/17 14:00 Globulin 4.1 gm/dL 07/10/17 14:00 Albumin/Globulin Ratio 0.7 (1.0-1.8) L 07/10/17 14:00 Triglycerides 46 mg/dL (<150) 07/10/17 14:00 Cholesterol 65 mg/dL (<200) 07/10/17 14:00 LDL Cholesterol Direct 32 mg/dL (75-193) L 07/10/17 14:00 HDL Cholesterol 23 mg/dL (23-92) 07/10/17 14:00 Amylase 45 U/L (29-103) 07/10/17 14:00 Lipase 13 U/L (11-82) 07/10/17 14:00 Urine Source CLEAN C 07/10/17 13:11 Urine Color YELLOW 07/10/17 13:11 Urine Clarity TURBID (CLEAR) 07/10/17 13:11 Urine pH 6.0 (4.6 - 8.0) 07/10/17 13:11 Ur Specific [place] 1.010 (1.005-1.030) 07/10/17 13:11 Urine Protein 100 mg/dL (NEGATIVE) H 07/10/17 13:11 Urine Glucose (UA) NEGATIVE mg/dL (NEGATIVE) 07/10/17 13:11 Urine Ketones NEGATIVE mg/dL (NEGATIVE) 07/10/17 13:11 Urine Blood MODERATE (NEGATIVE) H 07/10/17 13:11 Urine Nitrate NEGATIVE (NEGATIVE) 07/10/17 13:11 Urine Bilirubin NEGATIVE (NEGATIVE) 07/10/17 13:11 Urine Urobilinogen 0.2 E.U./dL (0.2 - 1.0) 07/10/17 13:11 Ur Leukocyte Esterase LARGE (NEGATIVE) H 07/10/17 13:11 Urine RBC 5-10 /hpf (0-5) H 07/10/17 13:11 Urine WBC >100 /hpf (0-5) H 07/10/17 13:11 Ur Epithelial Cells RARE /lpf (FEW) 07/10/17 13:11 Urine Bacteria NONE SEEN /hpf (NONE SEEN) 07/10/17 13:11 Helicobacter pylori Ab NEGATIVE (NEGATIVE) 07/12/17 14:20 Blood Type O POSITIVE 07/10/17 16:40 Antibody Screen NEGATIVE 07/10/17 16:40 Crossmatch See Detail 07/10/17 16:40 - Physical Exam Vitals and I&O: Vital Signs Temp 97.6 F 07/14/17 06:00 Pulse 83 07/14/17 06:35 Resp 25 07/14/17 08:00 BP 119/63 07/14/17 06:00 Pulse Ox 99 07/14/17 06:35 Intake & Output 07/13/17 07/14/17 07/14/17 18:59 06:59 18:59 Intake Total 350 960 Output Total 870 850 Balance -520 110 Weight (lbs) 73.482 kg 73.482 kg Intake: Intake, IV Amount 50 150 Piperacillin Sodium/ 50 150 Tazobact 2.25 gm In Sodium Chloride 0.9% 50 ml @ 100 mls/hr IV Q6HR [facility] Rx#:[id number] Tube Feeding 660 Other 300 150 Output: Urine 850 850 Stool 20 Other: # Bowel Movements 1 1 Stool Characteristics Soft Soft Brown Brown Weight Source Patient stated Bedscale Active Medications: Current Medications Acetaminophen (Tylenol 650mg/20.3ml Suspension) 650 mg GT Q4HR PRN PRN Reason: MILD PAIN OR TEMP>101 Stop: 09/08/17 19:53 Acetaminophen (Tylenol 650mg/20.3ml Suspension) 1,000 mg GT Q4HR PRN PRN Reason: MOD/SEVERE PAIN Stop: 09/08/17 19:53 Acetaminophen/Hydrocodone Bitart ([place] 10 Mg/325 Mg) 1 tab GT Q6H PRN PRN Reason: Severe Pain Stop: 09/08/17 19:53 Last Admin: 07/12/17 23:50 Dose: 1 tab Albuterol/Ipratropium (Duoneb Neb) 3 ml HHN Q6HRT MIKAYLA Stop: 09/08/17 18:59 Last Admin: 07/14/17 06:35 Dose: 3 ml Albuterol/Ipratropium (Duoneb Neb) 3 ml HHN Q6HRT MIKAYLA Stop: 09/09/17 00:59 Last Admin: 07/12/17 21:22 Dose: Not Given Artificial Tears (Artificial Tears Ophth Soln) 1 drop EACH EYE BID MIKAYLA Stop: 09/09/17 08:59 Last Admin: 07/13/17 18:22 Dose: 1 drop Ascorbic Acid (Vitamin C) 500 mg GT DAILY MIKAYLA Stop: 09/12/17 08:59 Calcium Acetate (Phoslo) 667 mg GT BIDWM MIKAYLA Stop: 09/09/17 07:59 Last Admin: 07/13/17 17:29 Dose: 667 mg Chlorhexidine Gluconate (Peridex) 15 ml MM 0800,1999 MIKAYLA Stop: 09/08/17 19:59 Last Admin: 07/13/17 20:17 Dose: 15 ml Docusate Sodium (Colace) 100 mg PO DAILY MIKAYLA Stop: 09/09/17 08:59 Last Admin: 07/13/17 10:06 Dose: 100 mg Famotidine (Pepcid) 20 mg GT BID MIKAYLA Stop: 09/09/17 08:59 Last Admin: 07/13/17 17:29 Dose: 20 mg Piperacillin Sod/Tazobactam (Sod 2.25 gm/ Sodium Chloride) 50 mls @ 100 mls/hr IV Q6HR MIKAYLA Stop: 09/09/17 05:59 Last Infusion: 07/14/17 06:05 Dose: Infused Dextrose/Sodium Chloride (D5-0.45ns) 1,000 mls @ 50 mls/hr IV .Q20H MIKAYLA Stop: 09/09/17 20:29 Last Admin: 07/11/17 20:39 Dose: 50 mls/hr Insulin Aspart (Novolog Insulin Sliding Scale) 0 units SUBQ Q6HR MIKAYLA PRN Reason: Protocol Stop: 09/09/17 00:00 Last Admin: 07/14/17 05:35 Dose: 3 units Lactobacillus Rhamnosus (Culturelle 15b) 1 each PO DAILY MIKAYLA Stop: 09/10/17 08:59 Last Admin: 07/13/17 10:06 Dose: 1 each Magnesium Hydroxide (Milk Of Magnesia) 30 ml GT Q24H PRN PRN Reason: Constipation Stop: 09/08/17 19:53 Miscellaneous (Probiotic Screen) 1 ea MC PRN PRN PRN Reason: PROTOCOL Stop: 09/09/17 14:14 Multivitamins/Vitamin C (Theragran) 1 tab PO DAILY MIKAYLA Stop: 09/09/17 08:59 Last Admin: 07/13/17 10:06 Dose: 1 tab Mupirocin (Bactroban Oint) 1 appl NS BID [facility] Stop: 07/17/17 09:01 Last Admin: 07/13/17 18:22 Dose: 1 appl Pantoprazole Sodium (Protonix) 40 mg IVP BID [facility] Stop: 09/12/17 08:59 Potassium Phosphate (K Phos) 500 mg PO Q4H MIKAYLA Stop: 09/09/17 08:14 Last Admin: 07/14/17 04:35 Dose: 500 mg Sodium Phosphate (Fleet Enema) 135 ml RC Q24H PRN PRN Reason: Constipation Stop: 09/08/17 19:53 General: Alert HEENT: Atraumatic Neck: Supple Cardiovascular: Regular rate Abdomen: Bowel sounds, Soft, no Tender, no Hepatomegaly, no Splenomegaly, no Distended, no Rebound, no Mass, no Guarding - Procedures Procedures: Procedures Procedure Code Date RESPIRATORY VENTILATION, 24-96 CONSECUTIVE HOURS [id number] 07/10/17 Assessment/Plan - Problem List Patient Problems: All Active Problems COFFEE GROUND EMESIS WITH TACHYPNEA (Acute) Nutritional Asmnt/Malnutr-PDOC - Dietary Evaluation Malnutrition Findings (Please click <Entered> for more info): Nutritional Asmnt/Malnutrition Start: 07/11/17 14: 40 Text: Status: Complete Freq: Document 07/11/17 14:40 LCTEDDY (Rec: 07/11/17 15:04 LCTEDDYG ANA CRISTINA-[email or web address]) Nutritional Asmnt/Malnutrition Patient General Information Nutritional Screening High Risk Diagnosis hematemesis r/o GI bleed Pertinent Medical Hx/Surgical Hx asthma/COPD, CVA/TIA, dyslipidemia, respiratory failure, PUD/GERD, ESRD, arthritis, dementia, PEG/Gtube Subjective Information Per H&P, pt had N/V/D for 3 days. Pt seen on vent via trach. Pt has Gtube noted. Per nurse note, pt had coffee ground emesis yetserday, today so far no vomiting. Pt kept on NPO for KUB. EGD is scheduled tomorrow. Current Diet Order/ Nutrition Support NPO Pertinent Medications vitamin C, colace, pepcid, novolog, levemir, culturelle, theragran, protoinix, piperacillin, K phos, nacl 0.9 % Pertinent Labs 07/11 Na 139, K 3.4, Cl 110, BUN 89, Cr 1.5, glucose 94, POC 93-98 Nutritional Hx/Data Height 1.57 m Height (Calculated Centimeters) 157.5 Current Weight (lbs) 52.163 kg Weight (Calculated Kilograms) 52.2 Weight (Calculated Grams) 90951.1 [place] Body Weight 110 Body Mass Index (BMI) 21.0 Weight Status Approriate GI Symptoms GI Symptoms None Last BM none Difficult in: None Usual diet at home Per chart, nepro 40ml/hr x 20hr to provide 800ml total volume and 800kcal. Skin Integrity/Comment: elastic roberto 11 Current %PO Negligible < 25% Estimated Nutritional Goals BEE in Kcals: Using Current wt Calories/Kcals/Kg 27-32 Kcals Calculated 0031-6975 Protein: Using Current wt Protein g/k.8-1 Protein Calculated 47-59 Fluid: ml per MD Nutritional Problem 1. Problem Problem altered nutrition related lab values Etiology hx of ESRD Signs/Symptoms: BUN 89, Cr 1.5 Intervention/Recommendation Comments 1. Monitor NPO status. 2. Monitor wt, labs and skin integrity 3. F/U as high risk in 2 days, 07/13 Expected Outcomes/Goals Expected Outcomes/Goals 1. Ptto meet at least 75% of nutritional needs in 2-3 days. 2. Wt stability, skin to remain intact, labs to approach WNL.
[2017-07-14] MEDS ORDERED: Ascorbic Acid 500 mg/5 mL UDC GT SCH (09:00)
--- NOTE | 2017-07-14 09:21 | Diagnostic Imaging Report ---
CHEST X-RAY: AP view INDICATION: Shortness of breath COMPARISON: Chest x-ray 07/12/[address] 07/13/2017 FINDINGS: Tracheostomy tube is noted. There is elevation of the right hemidiaphragm. Congestive changes are seen with bilateral interstitial infiltrates and right apical pleural capping. Cardiomegaly is noted. IMPRESSION: Congestive changes with bilateral interstitial infiltrates and mild volume loss of right lung and right apical pleural capping..
[2017-07-14] MEDS: Polyvinyl Alcohol Ophth Soln 15 mL Bottle EACH EYE SCH ×2 (09:41→17:13)
[2017-07-14] MEDS: Lactobacillus Rhamnosus GG 15 Billion CFU CAP.SPRINK PO SCH (09:42)
[2017-07-14] MEDS: Multivitamin Tab PO SCH (09:43)
[2017-07-14] MEDS: Chlorhexidine Gluconate 0.12% 15mL Mouthwash MM SCH ×2 (09:43→20:50)
--- NOTE | 2017-07-14 09:55 | Diagnostic Imaging Report ---
CT Chest without IV contrast HISTORY: Pneumonia COMPARISON: Chest x-ray 07/12/2017. Technique: Axial images were obtained from the base of the neck to the upper abdomen without IV contrast. Reconstructions were made. Total DLP 201, CTD I 6.3 Findings: There is elevation of the right hemidiaphragm. Exam is limited due to lack of IV contrast. Tracheostomy tube is noted. Multiple mildly prominent mediastinal lymph nodes are noted. Mild atherosclerosis is noted. Heart size is normal. No evidence of an aortic aneurysm. Generalized volume loss of the right lung with extensive right lung infiltrates and parenchymal lung disease with areas of bronchiectasis most pronounced within the right upper lobe. There is probable chronic scarring of the right lung. Small right effusion is noted. Multifocal left lung infiltrates are also noted including multifocal nodular infiltrates and small left effusion and left basal consolidative changes. The upper abdomen demonstrates mildly prominent liver. Nonspecific bilateral perinephric inflammatory changes are partially visualized. Degenerative changes of the spine are noted. IMPRESSION: Generalized volume loss of the right lung with extensive right lung infiltrates and parenchymal disease with areas of bronchiectasis and additional consolidative changes. Findings are likely combination of chronic lung changes and multifocal extensive pneumonia. Additional multifocal left lung infiltrates are also noted with mild hyperexpansion of the left lung noted. Left basal consolidative changes are also noted. Small bilateral pleural effusions are also noted. Mildly prominent mediastinal lymph nodes nonspecific, however, follow-up surveillance recommended. Mild atherosclerosis. Tracheostomy tube noted. Mildly prominent liver.
[2017-07-14] MEDS: D5-0.45NS 1,000 ML IV SCH (17:15)
--- NOTE | 2017-07-14 20:06 | Infectious Disease Prog Note ---
Infectious Disease Subjective - Review of Systems Service Date: 07/14/17 Subjective: There is no new change. ON VENTILATOR. Infectious Disease Objective - Results Result Diagrams: 07/14/17 04:00 07/14/17 04:00 Recent Labs: Laboratory Last Values WBC 8.4 Th/cmm (4.8-10.8) 07/14/17 04:00 RBC 4.22 Mil/cmm (4.30-5.70) L 07/14/17 04:00 Hgb 11.5 gm/dL (12-16) L 07/14/17 04:00 Hct 35.2 % (41.0-60) L 07/14/17 04:00 MCV 83.5 fl (80-99) 07/14/17 04:00 MCH 27.3 pg (26.0-30.0) 07/14/17 04:00 MCHC Differential 32.7 pg (28.0-36.0) 07/14/17 04:00 RDW 16.5 % (11.5-20.0) 07/14/17 04:00 Plt Count 159 Th/cmm (150-400) 07/14/17 04:00 MPV 6.4 fl 07/14/17 04:00 Neutrophils % 80.2 % (40.0-80.0) H 07/14/17 04:00 Band Neutrophils % 6 % (0-10) 07/10/17 14:00 Lymphocytes % 11.9 % (20.0-50.0) L 07/14/17 04:00 Monocytes % 3.2 % (2.0-10.0) 07/14/17 04:00 Eosinophils % 4.7 % (0.0-5.0) 07/14/17 04:00 Basophils % 0.0 % (0.0-2.0) 07/14/17 04:00 Neutrophils (Manual) 75 % (40-80) 07/10/17 14:00 Lymphocytes 10 % (20-50) L 07/10/17 14:00 Monocytes 6 % (2-10) 07/10/17 14:00 Eosinophils 3 % (0-5) 07/10/17 14:00 Basophils 0 % (0-3) 07/10/17 14:00 PT 11.5 SECONDS (9.5-11.5) 07/11/17 08:50 INR 1.10 (0.5-1.4) 07/11/17 08:50 PTT (Actin FS) 35.6 SECONDS (26.0-38.0) 07/10/17 14:00 Sodium 139 mEq/L (136-145) 07/14/17 04:00 Potassium 4.1 mEq/L (3.5-5.1) 07/14/17 04:00 Chloride 111 mEq/L (98-107) H 07/14/17 04:00 Carbon Dioxide 18.4 mEq/L (21.0-31.0) L 07/14/17 04:00 Anion Gap 13.7 (7.0-16.0) 07/14/17 04:00 BUN 49 mg/dL (7-25) H 07/14/17 04:00 Creatinine 1.3 mg/dL (0.7-1.3) 07/14/17 04:00 Est GFR ( Amer) > 60.0 ml/min (>90) 07/14/17 04:00 Est GFR (Non-Af Amer) 59.6 ml/min 07/14/17 04:00 BUN/Creatinine Ratio 37.7 07/14/17 04:00 Glucose 152 mg/dL (70-105) H 07/14/17 04:00 POC Glucose 175 MG/DL (70 - 105) H 07/14/17 05:33 Whole Bld Lactic Acid 0.97 mmol/L (0.60-1.99) 07/10/17 14:00 Calcium 9.0 mg/dL (8.6-10.3) 07/14/17 04:00 Total Bilirubin 0.5 mg/dL (0.3-1.0) 07/10/17 14:00 AST 59 U/L (13-39) H 07/10/17 14:00 ALT 60 U/L (7-52) H 07/10/17 14:00 Alkaline Phosphatase 735 U/L (34-104) H 07/10/17 14:00 Creatine Kinase 35 U/L (30-223) 07/10/17 14:00 Troponin I 0.04 ng/mL (0.01-0.05) 07/10/17 14:00 B-Natriuretic Peptide 195.0 pg/mL (5.0-100.0) H 07/10/17 14:00 Total Protein 7.0 gm/dL (6.0-8.3) 07/10/17 14:00 Albumin 2.9 gm/dL (4.2-5.5) L 07/10/17 14:00 Globulin 4.1 gm/dL 07/10/17 14:00 Albumin/Globulin Ratio 0.7 (1.0-1.8) L 07/10/17 14:00 Triglycerides 46 mg/dL (<150) 07/10/17 14:00 Cholesterol 65 mg/dL (<200) 07/10/17 14:00 LDL Cholesterol Direct 32 mg/dL (75-193) L 07/10/17 14:00 HDL Cholesterol 23 mg/dL (23-92) 07/10/17 14:00 Amylase 45 U/L (29-103) 07/10/17 14:00 Lipase 13 U/L (11-82) 07/10/17 14:00 Urine Source CLEAN C 07/10/17 13:11 Urine Color YELLOW 07/10/17 13:11 Urine Clarity TURBID (CLEAR) 07/10/17 13:11 Urine pH 6.0 (4.6 - 8.0) 07/10/17 13:11 Ur Specific [place] 1.010 (1.005-1.030) 07/10/17 13:11 Urine Protein 100 mg/dL (NEGATIVE) H 07/10/17 13:11 Urine Glucose (UA) NEGATIVE mg/dL (NEGATIVE) 07/10/17 13:11 Urine Ketones NEGATIVE mg/dL (NEGATIVE) 07/10/17 13:11 Urine Blood MODERATE (NEGATIVE) H 07/10/17 13:11 Urine Nitrate NEGATIVE (NEGATIVE) 07/10/17 13:11 Urine Bilirubin NEGATIVE (NEGATIVE) 07/10/17 13:11 Urine Urobilinogen 0.2 E.U./dL (0.2 - 1.0) 07/10/17 13:11 Ur Leukocyte Esterase LARGE (NEGATIVE) H 07/10/17 13:11 Urine RBC 5-10 /hpf (0-5) H 07/10/17 13:11 Urine WBC >100 /hpf (0-5) H 07/10/17 13:11 Ur Epithelial Cells RARE /lpf (FEW) 07/10/17 13:11 Urine Bacteria NONE SEEN /hpf (NONE SEEN) 07/10/17 13:11 Helicobacter pylori Ab NEGATIVE (NEGATIVE) 07/12/17 14:20 Blood Type O POSITIVE 07/10/17 16:40 Antibody Screen NEGATIVE 07/10/17 16:40 Crossmatch See Detail 07/10/17 16:40 - Physical Exam Vitals and I&O: Vital Signs Temp 97.2 F 07/14/17 16:00 Pulse 82 07/14/17 18:00 Resp 26 07/14/17 18:00 BP 131/66 07/14/17 18:00 Pulse Ox 100 07/14/17 18:00 Intake & Output 07/14/17 07/14/17 07/15/17 06:59 18:59 06:59 Intake Total 960 1120 Output Total 850 750 Balance 110 370 Weight (lbs) 73.482 kg 64.495 kg Intake: Intake, IV Amount 150 100 Piperacillin Sodium/ 150 100 Tazobact 2.25 gm In Sodium Chloride 0.9% 50 ml @ 100 mls/hr IV Q6HR [facility] Rx#:[id number] Tube Feeding 660 720 Other 150 300 Output: Urine 850 750 Other: # Bowel Movements 1 1 Stool Characteristics Soft Soft Brown Brown Weight Source Bedscale Bedscale Active Medications: Current Medications Acetaminophen (Tylenol 650mg/20.3ml Suspension) 650 mg GT Q4HR PRN PRN Reason: MILD PAIN OR TEMP>101 Stop: 09/08/17 19:53 Acetaminophen (Tylenol 650mg/20.3ml Suspension) 1,000 mg GT Q4HR PRN PRN Reason: MOD/SEVERE PAIN Stop: 09/08/17 19:53 Acetaminophen/Hydrocodone Bitart ([place] 10 Mg/325 Mg) 1 tab GT Q6H PRN PRN Reason: Severe Pain Stop: 09/08/17 19:53 Last Admin: 07/12/17 23:50 Dose: 1 tab Albuterol/Ipratropium (Duoneb Neb) 3 ml HHN Q6HRT MIKAYLA Stop: 09/08/17 18:59 Last Admin: 07/14/17 19:32 Dose: 3 ml Albuterol/Ipratropium (Duoneb Neb) 3 ml HHN Q6HRT MIKAYLA Stop: 09/09/17 00:59 Last Admin: 07/12/17 21:22 Dose: Not Given Artificial Tears (Artificial Tears Ophth Soln) 1 drop EACH EYE BID MIKAYLA Stop: 09/09/17 08:59 Last Admin: 07/14/17 17:13 Dose: 1 drop Ascorbic Acid (Vitamin C) 500 mg GT DAILY MIKAYLA Stop: 09/12/17 08:59 Last Admin: 07/14/17 09:42 Dose: 500 mg Calcium Acetate (Phoslo) 667 mg GT BIDWM MIKAYLA Stop: 09/09/17 07:59 Last Admin: 07/14/17 17:14 Dose: 667 mg Chlorhexidine Gluconate (Peridex) 15 ml MM 0800,2000 MIKAYLA Stop: 09/08/17 19:59 Last Admin: 07/14/17 09:43 Dose: 15 ml Docusate Sodium (Colace) 100 mg PO DAILY MIKAYLA Stop: 09/09/17 08:59 Last Admin: 07/14/17 09:42 Dose: 100 mg Famotidine (Pepcid) 20 mg GT BID MIKAYLA Stop: 09/09/17 08:59 Last Admin: 07/14/17 17:14 Dose: 20 mg Piperacillin Sod/Tazobactam (Sod 2.25 gm/ Sodium Chloride) 50 mls @ 100 mls/hr IV Q6HR MIKAYLA Stop: 09/09/17 05:59 Last Infusion: 07/14/17 18:42 Dose: Infused Dextrose/Sodium Chloride (D5-0.45ns) 1,000 mls @ 50 mls/hr IV .Q20H MIKAYLA Stop: 09/09/17 20:29 Last Admin: 07/14/17 17:15 Dose: 50 mls/hr Insulin Aspart (Novolog Insulin Sliding Scale) 0 units SUBQ Q6HR MIKAYLA PRN Reason: Protocol Stop: 09/09/17 00:00 Last Admin: 07/14/17 17:21 Dose: Not Given Lactobacillus Rhamnosus (Culturelle 15b) 1 each PO DAILY MIKAYLA Stop: 09/10/17 08:59 Last Admin: 07/14/17 09:42 Dose: 1 each Magnesium Hydroxide (Milk Of Magnesia) 30 ml GT Q24H PRN PRN Reason: Constipation Stop: 09/08/17 19:53 Miscellaneous (Probiotic Screen) 1 ea MC PRN PRN PRN Reason: PROTOCOL Stop: 09/09/17 14:14 Multivitamins/Vitamin C (Theragran) 1 tab PO DAILY MIKAYLA Stop: 09/09/17 08:59 Last Admin: 07/14/17 09:43 Dose: 1 tab Mupirocin (Bactroban Oint) 1 appl NS BID MIKAYLA Stop: 07/17/17 09:01 Last Admin: 07/14/17 17:13 Dose: 1 appl Pantoprazole Sodium (Protonix) 40 mg IVP BID [facility] Stop: 09/12/17 08:59 Last Admin: 07/14/17 17:14 Dose: 40 mg Potassium Phosphate (K Phos) 500 mg PO Q4H MIKAYLA Stop: 09/09/17 08:14 Last Admin: 07/14/17 17:14 Dose: 500 mg Sodium Phosphate (Fleet Enema) 135 ml RC Q24H PRN PRN Reason: Constipation Stop: 09/08/17 19:53 General: no acute distress, cachectic HEENT: atraumatic, normocephalic, PERRLA, EOMI Neck: supple, tracheostomy, no thyromegaly Cardiovascular: S1S2, regular Lungs: clear to auscultation bilaterally, clear to percussion Abdomen: soft, no tender, no distended, no mass, no rebound Extremities: no cyanosis, no clubbing Skin: no intact - Procedures Procedures: Procedures Procedure Code Date RESPIRATORY VENTILATION, 24-96 CONSECUTIVE HOURS [id number] 07/10/17 Infectious Disease Assmt/Plan - Problem List Patient Problems: All Active Problems COFFEE GROUND EMESIS WITH TACHYPNEA (Acute) - Assessment Assessment: 1. Aspiration pneumonia. 2. GI bleed. 3. Vent dependent respiratory failure. 4. Protein calorie malnutrition. - Plan Plan: Continue Zosyn. Nutritional Asmnt/Malnutr-PDOC - Dietary Evaluation Malnutrition Findings (Please click <Entered> for more info): Nutritional Asmnt/Malnutrition Start: 07/11/17 14: 40 Text: Status: Complete Freq: Document 07/11/17 14:40 RASHID (Rec: 07/11/17 15:04 RASHID ANA CRISTINA-[email or web address]) Nutritional Asmnt/Malnutrition Patient General Information Nutritional Screening High Risk Diagnosis hematemesis r/o GI bleed Pertinent Medical Hx/Surgical Hx asthma/COPD, CVA/TIA, dyslipidemia, respiratory failure, PUD/GERD, ESRD, arthritis, dementia, PEG/Gtube Subjective Information Per H&P, pt had N/V/D for 3 days. Pt seen on vent via trach. Pt has Gtube noted. Per nurse note, pt had coffee ground emesis yetserday, today so far no vomiting. Pt kept on NPO for KUB. EGD is scheduled tomorrow. Current Diet Order/ Nutrition Support NPO Pertinent Medications vitamin C, colace, pepcid, novolog, levemir, culturelle, theragran, protoinix, piperacillin, K phos, nacl 0.9 % Pertinent Labs 07/11 Na 139, K 3.4, Cl 110, BUN 89, Cr 1.5, glucose 94, POC 93-98 Nutritional Hx/Data Height 1.57 m Height (Calculated Centimeters) 157.5 Current Weight (lbs) 52.163 kg Weight (Calculated Kilograms) 52.2 Weight (Calculated Grams) 32321.1 [place] Body Weight 110 Body Mass Index (BMI) 21.0 Weight Status Approriate GI Symptoms GI Symptoms None Last BM none Difficult in: None Usual diet at home Per chart, nepro 40ml/hr x 20hr to provide 800ml total volume and 800kcal. Skin Integrity/Comment: elastic roberto 11 Current %PO Negligible < 25% Estimated Nutritional Goals BEE in Kcals: Using Current wt Calories/Kcals/Kg 27-32 Kcals Calculated 7774-1514 Protein: Using Current wt Protein g/k.8-1 Protein Calculated 47-59 Fluid: ml per MD Nutritional Problem 1. Problem Problem altered nutrition related lab values Etiology hx of ESRD Signs/Symptoms: BUN 89, Cr 1.5 Intervention/Recommendation Comments 1. Monitor NPO status. 2. Monitor wt, labs and skin integrity 3. F/U as high risk in 2 days, 07/13 Expected Outcomes/Goals Expected Outcomes/Goals 1. Ptto meet at least 75% of nutritional needs in 2-3 days. 2. Wt stability, skin to remain intact, labs to approach WNL.
[2017-07-14] MEDS: Hydrocodone/APAP 10 mg/325 mg Tab GT PRN (21:55)
[2017-07-15] MEDS: INSULIN ASPART SLIDING SCALE 100 UNITS/ML UNIT SUBQ SCH ×4 (00:25→17:16)
[2017-07-15] MEDS: Albuterol/Ipratropium Neb 3 ML AERS HHN SCH ×6 (00:41→18:45)
[2017-07-15 05:09] LABS: % EOSINOPHILS 5.6 % (0.0-5.0); EOSINOPHILE ABSOLUTE 0.5 Th/cmm (0.1-0.4); HEMOGLOBIN 10.7 gm/dL (12-16); LYMPHOCYTE ABSOLUTE 1.3 Th/cmm (1.5-3.0); WHITE BLOOD COUNT 8.5 Th/cmm (4.8-10.8)
[2017-07-15 05:23] LABS: % BASOPHILS 0.5 % (0.0-2.0); % LYMPHOCYTES 15.3 % (20.0-50.0); % MONOCYTES 4.6 % (2.0-10.0); HEMATOCRIT 32.1 % (41.0-60); MEAN CELL VOLUME 83.2 fl (80-99); MEAN CORPUSCULAR HEMOGLOBIN 27.6 pg (26.0-30.0); MEAN CORPUSCULAR HGB CONC 33.2 pg (28.0-36.0); MEAN PLATELET VOLUME 6.4 fl; MONOCYTE ABSOLUTE 0.4 Th/cmm (0.3-1.0); NEUTROPHILE ABSOLUTE 6.3 Th/cmm (1.8-8.0); PLATELET COUNT 162 Th/cmm (150-400); RED BLOOD COUNT 3.86 Mil/cmm (4.30-5.70); RED CELL DISTRIBUTION WIDTH 16.3 % (11.5-20.0)
[2017-07-15 05:30] LABS: ANION GAP 12.5 (7.0-16.0); BUN - UREA NITROGEN 42 mg/dL (7-25); CALCIUM SERUM 8.8 mg/dL (8.6-10.3); CARBON DIOXIDE 19.9 mEq/L (21.0-31.0); CHLORIDE 110 mEq/L (98-107); CREATININE - SERUM 1.3 mg/dL (0.7-1.3); GFR AFRICAN-AMERICAN > 60.0 ml/min (>90); GFR NON AFRICAN-AMERICAN 59.6 ml/min; GLUCOSE 150 mg/dL (70-105); POTASSIUM SERUM 4.4 mEq/L (3.5-5.1); SODIUM SERUM 138 mEq/L (136-145)
[2017-07-15] MEDS: Chlorhexidine Gluconate 0.12% 15mL Mouthwash MM SCH ×2 (08:05→20:22)
[2017-07-15] MEDS: Polyvinyl Alcohol Ophth Soln 15 mL Bottle EACH EYE SCH ×2 (09:30→16:53)
[2017-07-15] MEDS: Hydrocodone/APAP 10 mg/325 mg Tab GT PRN (09:45)
[2017-07-15] MEDS: Multivitamin Tab PO SCH (09:45)
[2017-07-15] MEDS: Lactobacillus Rhamnosus GG 15 Billion CFU CAP.SPRINK PO SCH (09:50)
--- NOTE | 2017-07-15 11:31 | GI Progress Note ---
Subjective - Review of Systems Service Date: 07/15/17 Subjective: KERVIN GT FEEDS. Objective - Results Result Diagrams: 07/15/17 04:05 07/15/17 04:05 Recent Labs: Laboratory Last Values WBC 8.5 Th/cmm (4.8-10.8) 07/15/17 04:05 RBC 3.86 Mil/cmm (4.30-5.70) L 07/15/17 04:05 Hgb 10.7 gm/dL (12-16) L 07/15/17 04:05 Hct 32.1 % (41.0-60) L 07/15/17 04:05 MCV 83.2 fl (80-99) 07/15/17 04:05 MCH 27.6 pg (26.0-30.0) 07/15/17 04:05 MCHC Differential 33.2 pg (28.0-36.0) 07/15/17 04:05 RDW 16.3 % (11.5-20.0) 07/15/17 04:05 Plt Count 162 Th/cmm (150-400) 07/15/17 04:05 MPV 6.4 fl 07/15/17 04:05 Neutrophils % 74.0 % (40.0-80.0) 07/15/17 04:05 Band Neutrophils % 6 % (0-10) 07/10/17 14:00 Lymphocytes % 15.3 % (20.0-50.0) L 07/15/17 04:05 Monocytes % 4.6 % (2.0-10.0) 07/15/17 04:05 Eosinophils % 5.6 % (0.0-5.0) H 07/15/17 04:05 Basophils % 0.5 % (0.0-2.0) 07/15/17 04:05 Neutrophils (Manual) 75 % (40-80) 07/10/17 14:00 Lymphocytes 10 % (20-50) L 07/10/17 14:00 Monocytes 6 % (2-10) 07/10/17 14:00 Eosinophils 3 % (0-5) 07/10/17 14:00 Basophils 0 % (0-3) 07/10/17 14:00 PT 11.5 SECONDS (9.5-11.5) 07/11/17 08:50 INR 1.10 (0.5-1.4) 07/11/17 08:50 PTT (Actin FS) 35.6 SECONDS (26.0-38.0) 07/10/17 14:00 Sodium 138 mEq/L (136-145) 07/15/17 04:05 Potassium 4.4 mEq/L (3.5-5.1) 07/15/17 04:05 Chloride 110 mEq/L (98-107) H 07/15/17 04:05 Carbon Dioxide 19.9 mEq/L (21.0-31.0) L 07/15/17 04:05 Anion Gap 12.5 (7.0-16.0) 07/15/17 04:05 BUN 42 mg/dL (7-25) H 07/15/17 04:05 Creatinine 1.3 mg/dL (0.7-1.3) 07/15/17 04:05 Est GFR ( Amer) > 60.0 ml/min (>90) 07/15/17 04:05 Est GFR (Non-Af Amer) 59.6 ml/min 07/15/17 04:05 BUN/Creatinine Ratio 32.3 07/15/17 04:05 Glucose 150 mg/dL (70-105) H 07/15/17 04:05 POC Glucose 299 MG/DL (70 - 105) H 07/15/17 00:21 Whole Bld Lactic Acid 0.97 mmol/L (0.60-1.99) 07/10/17 14:00 Calcium 8.8 mg/dL (8.6-10.3) 07/15/17 04:05 Total Bilirubin 0.5 mg/dL (0.3-1.0) 07/10/17 14:00 AST 59 U/L (13-39) H 07/10/17 14:00 ALT 60 U/L (7-52) H 07/10/17 14:00 Alkaline Phosphatase 735 U/L (34-104) H 07/10/17 14:00 Creatine Kinase 35 U/L (30-223) 07/10/17 14:00 Troponin I 0.04 ng/mL (0.01-0.05) 07/10/17 14:00 B-Natriuretic Peptide 195.0 pg/mL (5.0-100.0) H 07/10/17 14:00 Total Protein 7.0 gm/dL (6.0-8.3) 07/10/17 14:00 Albumin 2.9 gm/dL (4.2-5.5) L 07/10/17 14:00 Globulin 4.1 gm/dL 07/10/17 14:00 Albumin/Globulin Ratio 0.7 (1.0-1.8) L 07/10/17 14:00 Triglycerides 46 mg/dL (<150) 07/10/17 14:00 Cholesterol 65 mg/dL (<200) 07/10/17 14:00 LDL Cholesterol Direct 32 mg/dL (75-193) L 07/10/17 14:00 HDL Cholesterol 23 mg/dL (23-92) 07/10/17 14:00 Amylase 45 U/L (29-103) 07/10/17 14:00 Lipase 13 U/L (11-82) 07/10/17 14:00 Urine Source CLEAN C 07/10/17 13:11 Urine Color YELLOW 07/10/17 13:11 Urine Clarity TURBID (CLEAR) 07/10/17 13:11 Urine pH 6.0 (4.6 - 8.0) 07/10/17 13:11 Ur Specific [place] 1.010 (1.005-1.030) 07/10/17 13:11 Urine Protein 100 mg/dL (NEGATIVE) H 07/10/17 13:11 Urine Glucose (UA) NEGATIVE mg/dL (NEGATIVE) 07/10/17 13:11 Urine Ketones NEGATIVE mg/dL (NEGATIVE) 07/10/17 13:11 Urine Blood MODERATE (NEGATIVE) H 07/10/17 13:11 Urine Nitrate NEGATIVE (NEGATIVE) 07/10/17 13:11 Urine Bilirubin NEGATIVE (NEGATIVE) 07/10/17 13:11 Urine Urobilinogen 0.2 E.U./dL (0.2 - 1.0) 07/10/17 13:11 Ur Leukocyte Esterase LARGE (NEGATIVE) H 07/10/17 13:11 Urine RBC 5-10 /hpf (0-5) H 07/10/17 13:11 Urine WBC >100 /hpf (0-5) H 07/10/17 13:11 Ur Epithelial Cells RARE /lpf (FEW) 07/10/17 13:11 Urine Bacteria NONE SEEN /hpf (NONE SEEN) 07/10/17 13:11 Helicobacter pylori Ab NEGATIVE (NEGATIVE) 07/12/17 14:20 Blood Type O POSITIVE 07/10/17 16:40 Antibody Screen NEGATIVE 07/10/17 16:40 Crossmatch See Detail 07/10/17 16:40 - Physical Exam Vitals and I&O: Vital Signs Temp 98 F 07/15/17 11:00 Pulse 86 07/15/17 11:00 Resp 20 07/15/17 11:00 BP 140/76 07/15/17 11:00 Pulse Ox 99 07/15/17 11:00 Intake & Output 07/14/17 07/15/17 07/15/17 18:59 06:59 18:59 Intake Total 1120 970 Output Total 750 800 Balance 370 170 Weight (lbs) 64.495 kg 64.41 kg Intake: Intake, IV Amount 100 50 Piperacillin Sodium/ 100 50 Tazobact 2.25 gm In Sodium Chloride 0.9% 50 ml @ 100 mls/hr IV Q6HR [facility] Rx#:[id number] Tube Feeding 720 720 Other 300 200 Output: Urine 750 800 Other: # Bowel Movements 1 Stool Characteristics Soft Soft Soft Brown Brown Brown Weight Source Bedscale Bedscale Active Medications: Current Medications Acetaminophen (Tylenol 650mg/20.3ml Suspension) 650 mg GT Q4HR PRN PRN Reason: MILD PAIN OR TEMP>101 Stop: 09/08/17 19:53 Acetaminophen (Tylenol 650mg/20.3ml Suspension) 1,000 mg GT Q4HR PRN PRN Reason: MOD/SEVERE PAIN Stop: 09/08/17 19:53 Acetaminophen/Hydrocodone Bitart ([place] 10 Mg/325 Mg) 1 tab GT Q6H PRN PRN Reason: Severe Pain Stop: 09/08/17 19:53 Last Admin: 07/15/17 09:45 Dose: 1 tab Albuterol/Ipratropium (Duoneb Neb) 3 ml HHN Q6HRT [facility] Stop: 09/08/17 18:59 Last Admin: 07/15/17 07:35 Dose: 3 ml Albuterol/Ipratropium (Duoneb Neb) 3 ml HHN Q6HRT [facility] Stop: 09/09/17 00:59 Last Admin: 07/15/17 00:41 Dose: Not Given Artificial Tears (Artificial Tears Ophth Soln) 1 drop EACH EYE BID [facility] Stop: 09/09/17 08:59 Last Admin: 07/15/17 09:30 Dose: 1 drop Ascorbic Acid (Vitamin C) 500 mg GT DAILY [facility] Stop: 09/12/17 08:59 Last Admin: 07/15/17 09:50 Dose: 500 mg Calcium Acetate (Phoslo) 667 mg GT BIDWM [facility] Stop: 09/09/17 07:59 Last Admin: 07/15/17 10:34 Dose: 667 mg Chlorhexidine Gluconate (Peridex) 15 ml MM 08,1999 [facility] Stop: 09/08/17 19:59 Last Admin: 07/15/17 08:05 Dose: 15 ml Docusate Sodium (Colace) 100 mg PO DAILY [facility] Stop: 09/09/17 08:59 Last Admin: 07/15/17 09:50 Dose: 100 mg Famotidine (Pepcid) 20 mg GT BID [facility] Stop: 09/09/17 08:59 Last Admin: 07/15/17 09:45 Dose: 20 mg Piperacillin Sod/Tazobactam (Sod 2.25 gm/ Sodium Chloride) 50 mls @ 100 mls/hr IV Q6HR [facility] Stop: 09/09/17 05:59 Last Admin: 07/15/17 04:07 Dose: 100 mls/hr Dextrose/Sodium Chloride (D5-0.45ns) 1,000 mls @ 50 mls/hr IV .Q20H [facility] Stop: 09/09/17 20:29 Last Admin: 07/14/17 17:15 Dose: 50 mls/hr Insulin Aspart (Novolog Insulin Sliding Scale) 0 units SUBQ Q6HR [facility] PRN Reason: Protocol Stop: 09/09/17 00:00 Last Admin: 07/15/17 06:08 Dose: Not Given Lactobacillus Rhamnosus (Culturelle 15b) 1 each PO DAILY [facility]KAY[facility] Stop: 09/10/17 08:59 Last Admin: 07/15/17 09:50 Dose: 1 each Magnesium Hydroxide (Milk Of Magnesia) 30 ml GT Q24H PRN PRN Reason: Constipation Stop: 09/08/17 19:53 Miscellaneous (Probiotic Screen) 1 ea MC PRN PRN PRN Reason: PROTOCOL Stop: 09/09/17 14:14 Multivitamins/Vitamin C (Theragran) 1 tab PO DAILY [facility] Stop: 09/09/17 08:59 Last Admin: 07/15/17 09:45 Dose: 1 tab Mupirocin (Bactroban Oint) 1 appl NS BID [facility] Stop: 07/17/17 09:01 Last Admin: 07/15/17 09:30 Dose: 1 appl Pantoprazole Sodium (Protonix) 40 mg IVP BID [facility] Stop: 09/12/17 08:59 Last Admin: 07/15/17 09:40 Dose: 40 mg Potassium Phosphate (K Phos) 500 mg PO Q4H [facility] Stop: 09/09/17 08:14 Last Admin: 07/15/17 08:30 Dose: 500 mg Sodium Phosphate (Fleet Enema) 135 ml RC Q24H PRN PRN Reason: Constipation Stop: 09/08/17 19:53 General: No acute distress HEENT: Atraumatic Neck: Supple Cardiovascular: Regular rate Abdomen: Bowel sounds, Soft, Other (INTACT GT), no Tender, no Hepatomegaly, no Splenomegaly, no Distended, no Rebound, no Mass, no Guarding - Procedures Procedures: Procedures Procedure Code Date RESPIRATORY VENTILATION, GREATER THAN 96 CONSECUTIVE HOURS [id number] 07/10/17 Assessment/Plan - Problem List Patient Problems: All Active Problems COFFEE GROUND EMESIS WITH TACHYPNEA (Acute) - Assessment Assessment: # Coffee ground emesis # Dementia # Dysphagia with G tube EGD on 07/12 showed esophagitis, gastritis, hiatal hernia, intact G tube. No active bleeding. Coffee grounds likely 2/2 esophagitis and gastritis. Plan: - cont G tube feeding as tolerated - Await biopsy results - cont protonix bid for 30 days, then daily - anti emetics as needed - trend hgb, transfuse as needed to keep > 7 GI GOMEZ STABLE.
--- NOTE | 2017-07-15 12:58 | Infectious Disease Prog Note ---
Infectious Disease Subjective - Review of Systems Service Date: 07/15/17 Subjective: There is no new change. ON VENTILATOR. Infectious Disease Objective - Results Result Diagrams: 07/15/17 04:05 07/15/17 04:05 Recent Labs: Laboratory Last Values WBC 8.5 Th/cmm (4.8-10.8) 07/15/17 04:05 RBC 3.86 Mil/cmm (4.30-5.70) L 07/15/17 04:05 Hgb 10.7 gm/dL (12-16) L 07/15/17 04:05 Hct 32.1 % (41.0-60) L 07/15/17 04:05 MCV 83.2 fl (80-99) 07/15/17 04:05 MCH 27.6 pg (26.0-30.0) 07/15/17 04:05 MCHC Differential 33.2 pg (28.0-36.0) 07/15/17 04:05 RDW 16.3 % (11.5-20.0) 07/15/17 04:05 Plt Count 162 Th/cmm (150-400) 07/15/17 04:05 MPV 6.4 fl 07/15/17 04:05 Neutrophils % 74.0 % (40.0-80.0) 07/15/17 04:05 Band Neutrophils % 6 % (0-10) 07/10/17 14:00 Lymphocytes % 15.3 % (20.0-50.0) L 07/15/17 04:05 Monocytes % 4.6 % (2.0-10.0) 07/15/17 04:05 Eosinophils % 5.6 % (0.0-5.0) H 07/15/17 04:05 Basophils % 0.5 % (0.0-2.0) 07/15/17 04:05 Neutrophils (Manual) 75 % (40-80) 07/10/17 14:00 Lymphocytes 10 % (20-50) L 07/10/17 14:00 Monocytes 6 % (2-10) 07/10/17 14:00 Eosinophils 3 % (0-5) 07/10/17 14:00 Basophils 0 % (0-3) 07/10/17 14:00 PT 11.5 SECONDS (9.5-11.5) 07/11/17 08:50 INR 1.10 (0.5-1.4) 07/11/17 08:50 PTT (Actin FS) 35.6 SECONDS (26.0-38.0) 07/10/17 14:00 Sodium 138 mEq/L (136-145) 07/15/17 04:05 Potassium 4.4 mEq/L (3.5-5.1) 07/15/17 04:05 Chloride 110 mEq/L (98-107) H 07/15/17 04:05 Carbon Dioxide 19.9 mEq/L (21.0-31.0) L 07/15/17 04:05 Anion Gap 12.5 (7.0-16.0) 07/15/17 04:05 BUN 42 mg/dL (7-25) H 07/15/17 04:05 Creatinine 1.3 mg/dL (0.7-1.3) 07/15/17 04:05 Est GFR ( Amer) > 60.0 ml/min (>90) 07/15/17 04:05 Est GFR (Non-Af Amer) 59.6 ml/min 07/15/17 04:05 BUN/Creatinine Ratio 32.3 07/15/17 04:05 Glucose 150 mg/dL (70-105) H 07/15/17 04:05 POC Glucose 299 MG/DL (70 - 105) H 07/15/17 00:21 Whole Bld Lactic Acid 0.97 mmol/L (0.60-1.99) 07/10/17 14:00 Calcium 8.8 mg/dL (8.6-10.3) 07/15/17 04:05 Total Bilirubin 0.5 mg/dL (0.3-1.0) 07/10/17 14:00 AST 59 U/L (13-39) H 07/10/17 14:00 ALT 60 U/L (7-52) H 07/10/17 14:00 Alkaline Phosphatase 735 U/L (34-104) H 07/10/17 14:00 Creatine Kinase 35 U/L (30-223) 07/10/17 14:00 Troponin I 0.04 ng/mL (0.01-0.05) 07/10/17 14:00 B-Natriuretic Peptide 195.0 pg/mL (5.0-100.0) H 07/10/17 14:00 Total Protein 7.0 gm/dL (6.0-8.3) 07/10/17 14:00 Albumin 2.9 gm/dL (4.2-5.5) L 07/10/17 14:00 Globulin 4.1 gm/dL 07/10/17 14:00 Albumin/Globulin Ratio 0.7 (1.0-1.8) L 07/10/17 14:00 Triglycerides 46 mg/dL (<150) 07/10/17 14:00 Cholesterol 65 mg/dL (<200) 07/10/17 14:00 LDL Cholesterol Direct 32 mg/dL (75-193) L 07/10/17 14:00 HDL Cholesterol 23 mg/dL (23-92) 07/10/17 14:00 Amylase 45 U/L (29-103) 07/10/17 14:00 Lipase 13 U/L (11-82) 07/10/17 14:00 Urine Source CLEAN C 07/10/17 13:11 Urine Color YELLOW 07/10/17 13:11 Urine Clarity TURBID (CLEAR) 07/10/17 13:11 Urine pH 6.0 (4.6 - 8.0) 07/10/17 13:11 Ur Specific [place] 1.010 (1.005-1.030) 07/10/17 13:11 Urine Protein 100 mg/dL (NEGATIVE) H 07/10/17 13:11 Urine Glucose (UA) NEGATIVE mg/dL (NEGATIVE) 07/10/17 13:11 Urine Ketones NEGATIVE mg/dL (NEGATIVE) 07/10/17 13:11 Urine Blood MODERATE (NEGATIVE) H 07/10/17 13:11 Urine Nitrate NEGATIVE (NEGATIVE) 07/10/17 13:11 Urine Bilirubin NEGATIVE (NEGATIVE) 07/10/17 13:11 Urine Urobilinogen 0.2 E.U./dL (0.2 - 1.0) 07/10/17 13:11 Ur Leukocyte Esterase LARGE (NEGATIVE) H 07/10/17 13:11 Urine RBC 5-10 /hpf (0-5) H 07/10/17 13:11 Urine WBC >100 /hpf (0-5) H 07/10/17 13:11 Ur Epithelial Cells RARE /lpf (FEW) 07/10/17 13:11 Urine Bacteria NONE SEEN /hpf (NONE SEEN) 07/10/17 13:11 Helicobacter pylori Ab NEGATIVE (NEGATIVE) 07/12/17 14:20 Blood Type O POSITIVE 07/10/17 16:40 Antibody Screen NEGATIVE 07/10/17 16:40 Crossmatch See Detail 07/10/17 16:40 - Physical Exam Vitals and I&O: Vital Signs Temp 98 F 07/15/17 12:00 Pulse 82 07/15/17 12:00 Resp 14 07/15/17 12:00 BP 132/64 07/15/17 12:00 Pulse Ox 99 07/15/17 12:00 Intake & Output 07/14/17 07/15/17 07/15/17 18:59 06:59 18:59 Intake Total 1120 1020 50 Output Total 750 800 Balance 370 220 50 Weight (lbs) 64.495 kg 64.41 kg Intake: Intake, IV Amount 100 100 50 Piperacillin Sodium/ 100 100 50 Tazobact 2.25 gm In Sodium Chloride 0.9% 50 ml @ 100 mls/hr IV Q6HR [facility] Rx#:[id number] Tube Feeding 720 720 Other 300 200 Output: Urine 750 800 Other: # Bowel Movements 1 Stool Characteristics Soft Soft Soft Brown Brown Brown Weight Source Bedscale Bedscale Active Medications: Current Medications Acetaminophen (Tylenol 650mg/20.3ml Suspension) 650 mg GT Q4HR PRN PRN Reason: MILD PAIN OR TEMP>101 Stop: 09/08/17 19:53 Acetaminophen (Tylenol 650mg/20.3ml Suspension) 1,000 mg GT Q4HR PRN PRN Reason: MOD/SEVERE PAIN Stop: 09/08/17 19:53 Acetaminophen/Hydrocodone Bitart ([place] 10 Mg/325 Mg) 1 tab GT Q6H PRN PRN Reason: Severe Pain Stop: 09/08/17 19:53 Last Admin: 07/15/17 09:45 Dose: 1 tab Albuterol/Ipratropium (Duoneb Neb) 3 ml HHN Q6HRT [facility] Stop: 09/08/17 18:59 Last Admin: 07/15/17 07:35 Dose: 3 ml Albuterol/Ipratropium (Duoneb Neb) 3 ml HHN Q6HRT [facility] Stop: 09/09/17 00:59 Last Admin: 07/15/17 00:41 Dose: Not Given Artificial Tears (Artificial Tears Ophth Soln) 1 drop EACH EYE BID [facility] Stop: 09/09/17 08:59 Last Admin: 07/15/17 09:30 Dose: 1 drop Ascorbic Acid (Vitamin C) 500 mg GT DAILY [facility] Stop: 09/12/17 08:59 Last Admin: 07/15/17 09:50 Dose: 500 mg Calcium Acetate (Phoslo) 667 mg GT BIDWM [facility] Stop: 09/09/17 07:59 Last Admin: 07/15/17 10:34 Dose: 667 mg Chlorhexidine Gluconate (Peridex) 15 ml MM 0800,1999 [facility] Stop: 09/08/17 19:59 Last Admin: 07/15/17 08:05 Dose: 15 ml Docusate Sodium (Colace) 100 mg PO DAILY [facility] Stop: 09/09/17 08:59 Last Admin: 07/15/17 09:50 Dose: 100 mg Famotidine (Pepcid) 20 mg GT BID [facility] Stop: 09/09/17 08:59 Last Admin: 07/15/17 09:45 Dose: 20 mg Piperacillin Sod/Tazobactam (Sod 2.25 gm/ Sodium Chloride) 50 mls @ 100 mls/hr IV Q6HR [facility] Stop: 09/09/17 05:59 Last Infusion: 07/15/17 12:30 Dose: Infused Dextrose/Sodium Chloride (D5-0.45ns) 1,000 mls @ 50 mls/hr IV .Q20H [facility] Stop: 09/09/17 20:29 Last Admin: 07/14/17 17:15 Dose: 50 mls/hr Insulin Aspart (Novolog Insulin Sliding Scale) 0 units SUBQ Q6HR [facility] PRN Reason: Protocol Stop: 09/09/17 00:00 Last Admin: 07/15/17 12:49 Dose: 9 units Lactobacillus Rhamnosus (Culturelle 15b) 1 each PO DAILY [facility] Stop: 09/10/17 08:59 Last Admin: 07/15/17 09:50 Dose: 1 each Magnesium Hydroxide (Milk Of Magnesia) 30 ml GT Q24H PRN PRN Reason: Constipation Stop: 09/08/17 19:53 Miscellaneous (Probiotic Screen) 1 ea MC PRN PRN PRN Reason: PROTOCOL Stop: 09/09/17 14:14 Multivitamins/Vitamin C (Theragran) 1 tab PO DAILY [facility] Stop: 09/09/17 08:59 Last Admin: 07/15/17 09:45 Dose: 1 tab Mupirocin (Bactroban Oint) 1 appl NS BID [facility] Stop: 07/17/17 09:01 Last Admin: 07/15/17 09:30 Dose: 1 appl Pantoprazole Sodium (Protonix) 40 mg IVP BID [facility] Stop: 09/12/17 08:59 Last Admin: 07/15/17 09:40 Dose: 40 mg Potassium Phosphate (K Phos) 500 mg PO Q4H [facility] Stop: 09/09/17 08:14 Last Admin: 07/15/17 08:30 Dose: 500 mg Sodium Phosphate (Fleet Enema) 135 ml RC Q24H PRN PRN Reason: Constipation Stop: 09/08/17 19:53 General: no acute distress, well developed, well nourished HEENT: atraumatic, normocephalic, PERRLA Neck: supple, no thyromegaly Cardiovascular: S1S2, regular Lungs: clear to auscultation bilaterally, clear to percussion Abdomen: soft, no tender, no distended, no rebound Extremities: no cyanosis, no clubbing Neurological: awake, alert, oriented Skin: intact - Procedures Procedures: Procedures Procedure Code Date RESPIRATORY VENTILATION, GREATER THAN 96 CONSECUTIVE HOURS [id number] 07/10/17 Infectious Disease Assmt/Plan - Problem List Patient Problems: All Active Problems COFFEE GROUND EMESIS WITH TACHYPNEA (Acute) - Assessment Assessment: 1. Aspiration pneumonia. 2. GI bleed. 3. Vent dependent respiratory failure. 4. Protein calorie malnutrition. - Plan Plan: Continue Zosyn. Start Diflucan 100 mg by mouth daily If patient gets discharge May change antibiotic to clindamycin and Diflucan by mouth to 7 days. Change Zosyn to cefepime 2 g every 12 IV for 7 days. Nutritional Asmnt/Malnutr-PDOC - Dietary Evaluation Malnutrition Findings (Please click <Entered> for more info): Nutritional Asmnt/Malnutrition Start: 07/11/17 14: 40 Text: Status: Complete Freq: Document 07/11/17 14:40 [id number] (Rec: 07/11/17 15:04 LCHENG ANA [email or web address]) Nutritional Asmnt/Malnutrition Patient General Information Nutritional Screening High Risk Diagnosis hematemesis r/o GI bleed Pertinent Medical Hx/Surgical Hx asthma/COPD, CVA/TIA, dyslipidemia, respiratory failure, PUD/GERD, ESRD, arthritis, dementia, PEG/Gtube Subjective Information Per H&P, pt had N/V/D for 3 days. Pt seen on vent via trach. Pt has Gtube noted. Per nurse note, pt had coffee ground emesis yetserday, today so far no vomiting. Pt kept on NPO for KUB. EGD is scheduled tomorrow. Current Diet Order/ Nutrition Support NPO Pertinent Medications vitamin C, colace, pepcid, novolog, levemir, culturelle, theragran, protoinix, piperacillin, K phos, nacl 0.9 % Pertinent Labs 07/11 Na 139, K 3.4, Cl 110, BUN 89, Cr 1.5, glucose 94, POC 93-98 Nutritional Hx/Data Height 1.57 m Height (Calculated Centimeters) 157.5 Current Weight (lbs) 52.163 kg Weight (Calculated Kilograms) 52.2 Weight (Calculated Grams) 94461.1 [place] Body Weight 110 Body Mass Index (BMI) 21.0 Weight Status Approriate GI Symptoms GI Symptoms None Last BM none Difficult in: None Usual diet at home Per chart, nepro 40ml/hr x 20hr to provide 800ml total volume and 800kcal. Skin Integrity/Comment: elastic roberto 11 Current %PO Negligible < 25% Estimated Nutritional Goals BEE in Kcals: Using Current wt Calories/Kcals/Kg 27-32 Kcals Calculated 9627-1874 Protein: Using Current wt Protein g/k.8-1 Protein Calculated 47-59 Fluid: ml per MD Nutritional Problem 1. Problem Problem altered nutrition related lab values Etiology hx of ESRD Signs/Symptoms: BUN 89, Cr 1.5 Intervention/Recommendation Comments 1. Monitor NPO status. 2. Monitor wt, labs and skin integrity 3. F/U as high risk in 2 days, 07/13 Expected Outcomes/Goals Expected Outcomes/Goals 1. Ptto meet at least 75% of nutritional needs in 2-3 days. 2. Wt stability, skin to remain intact, labs to approach WNL.
--- NOTE | 2017-07-15 14:20 | General Progress Note ---
Subjective - Review of Systems Events since last encounter: no change on vent support Objective - Results Result Diagrams: 07/15/17 04:05 07/15/17 04:05 Recent Labs: Laboratory Last Values WBC 8.5 Th/cmm (4.8-10.8) 07/15/17 04:05 RBC 3.86 Mil/cmm (4.30-5.70) L 07/15/17 04:05 Hgb 10.7 gm/dL (12-16) L 07/15/17 04:05 Hct 32.1 % (41.0-60) L 07/15/17 04:05 MCV 83.2 fl (80-99) 07/15/17 04:05 MCH 27.6 pg (26.0-30.0) 07/15/17 04:05 MCHC Differential 33.2 pg (28.0-36.0) 07/15/17 04:05 RDW 16.3 % (11.5-20.0) 07/15/17 04:05 Plt Count 162 Th/cmm (150-400) 07/15/17 04:05 MPV 6.4 fl 07/15/17 04:05 Neutrophils % 74.0 % (40.0-80.0) 07/15/17 04:05 Band Neutrophils % 6 % (0-10) 07/10/17 14:00 Lymphocytes % 15.3 % (20.0-50.0) L 07/15/17 04:05 Monocytes % 4.6 % (2.0-10.0) 07/15/17 04:05 Eosinophils % 5.6 % (0.0-5.0) H 07/15/17 04:05 Basophils % 0.5 % (0.0-2.0) 07/15/17 04:05 Neutrophils (Manual) 75 % (40-80) 07/10/17 14:00 Lymphocytes 10 % (20-50) L 07/10/17 14:00 Monocytes 6 % (2-10) 07/10/17 14:00 Eosinophils 3 % (0-5) 07/10/17 14:00 Basophils 0 % (0-3) 07/10/17 14:00 PT 11.5 SECONDS (9.5-11.5) 07/11/17 08:50 INR 1.10 (0.5-1.4) 07/11/17 08:50 PTT (Actin FS) 35.6 SECONDS (26.0-38.0) 07/10/17 14:00 Sodium 138 mEq/L (136-145) 07/15/17 04:05 Potassium 4.4 mEq/L (3.5-5.1) 07/15/17 04:05 Chloride 110 mEq/L (98-107) H 07/15/17 04:05 Carbon Dioxide 19.9 mEq/L (21.0-31.0) L 07/15/17 04:05 Anion Gap 12.5 (7.0-16.0) 07/15/17 04:05 BUN 42 mg/dL (7-25) H 07/15/17 04:05 Creatinine 1.3 mg/dL (0.7-1.3) 07/15/17 04:05 Est GFR ( Amer) > 60.0 ml/min (>90) 07/15/17 04:05 Est GFR (Non-Af Amer) 59.6 ml/min 07/15/17 04:05 BUN/Creatinine Ratio 32.3 07/15/17 04:05 Glucose 150 mg/dL (70-105) H 07/15/17 04:05 POC Glucose 304 MG/DL (70 - 105) H 07/15/17 12:49 Whole Bld Lactic Acid 0.97 mmol/L (0.60-1.99) 07/10/17 14:00 Calcium 8.8 mg/dL (8.6-10.3) 07/15/17 04:05 Total Bilirubin 0.5 mg/dL (0.3-1.0) 07/10/17 14:00 AST 59 U/L (13-39) H 07/10/17 14:00 ALT 60 U/L (7-52) H 07/10/17 14:00 Alkaline Phosphatase 735 U/L (34-104) H 07/10/17 14:00 Creatine Kinase 35 U/L (30-223) 07/10/17 14:00 Troponin I 0.04 ng/mL (0.01-0.05) 07/10/17 14:00 B-Natriuretic Peptide 195.0 pg/mL (5.0-100.0) H 07/10/17 14:00 Total Protein 7.0 gm/dL (6.0-8.3) 07/10/17 14:00 Albumin 2.9 gm/dL (4.2-5.5) L 07/10/17 14:00 Globulin 4.1 gm/dL 07/10/17 14:00 Albumin/Globulin Ratio 0.7 (1.0-1.8) L 07/10/17 14:00 Triglycerides 46 mg/dL (<150) 07/10/17 14:00 Cholesterol 65 mg/dL (<200) 07/10/17 14:00 LDL Cholesterol Direct 32 mg/dL (75-193) L 07/10/17 14:00 HDL Cholesterol 23 mg/dL (23-92) 07/10/17 14:00 Amylase 45 U/L (29-103) 07/10/17 14:00 Lipase 13 U/L (11-82) 07/10/17 14:00 Urine Source CLEAN C 07/10/17 13:11 Urine Color YELLOW 07/10/17 13:11 Urine Clarity TURBID (CLEAR) 07/10/17 13:11 Urine pH 6.0 (4.6 - 8.0) 07/10/17 13:11 Ur Specific [place] 1.010 (1.005-1.030) 07/10/17 13:11 Urine Protein 100 mg/dL (NEGATIVE) H 07/10/17 13:11 Urine Glucose (UA) NEGATIVE mg/dL (NEGATIVE) 07/10/17 13:11 Urine Ketones NEGATIVE mg/dL (NEGATIVE) 07/10/17 13:11 Urine Blood MODERATE (NEGATIVE) H 07/10/17 13:11 Urine Nitrate NEGATIVE (NEGATIVE) 07/10/17 13:11 Urine Bilirubin NEGATIVE (NEGATIVE) 07/10/17 13:11 Urine Urobilinogen 0.2 E.U./dL (0.2 - 1.0) 07/10/17 13:11 Ur Leukocyte Esterase LARGE (NEGATIVE) H 07/10/17 13:11 Urine RBC 5-10 /hpf (0-5) H 07/10/17 13:11 Urine WBC >100 /hpf (0-5) H 07/10/17 13:11 Ur Epithelial Cells RARE /lpf (FEW) 07/10/17 13:11 Urine Bacteria NONE SEEN /hpf (NONE SEEN) 07/10/17 13:11 Helicobacter pylori Ab NEGATIVE (NEGATIVE) 07/12/17 14:20 Blood Type O POSITIVE 07/10/17 16:40 Antibody Screen NEGATIVE 07/10/17 16:40 Crossmatch See Detail 07/10/17 16:40 - Physical Exam Vitals and I&O: Vital Signs Temp 98 F 07/15/17 13:00 Pulse 86 07/15/17 13:07 Resp 21 07/15/17 13:00 BP 106/56 07/15/17 13:00 Pulse Ox 99 07/15/17 13:07 Intake & Output 07/14/17 07/15/17 07/15/17 18:59 06:59 18:59 Intake Total 1120 1020 50 Output Total 750 800 Balance 370 220 50 Weight (lbs) 64.495 kg 64.41 kg Intake: Intake, IV Amount 100 100 50 Piperacillin Sodium/ 100 100 50 Tazobact 2.25 gm In Sodium Chloride 0.9% 50 ml @ 100 mls/hr IV Q6HR [facility] Rx#:[id number] Tube Feeding 720 720 Other 300 200 Output: Urine 750 800 Other: # Bowel Movements 1 Stool Characteristics Soft Soft Soft Brown Brown Brown Weight Source Bedscale Bedscale Active Medications: Current Medications Acetaminophen (Tylenol 650mg/20.3ml Suspension) 650 mg GT Q4HR PRN PRN Reason: MILD PAIN OR TEMP>101 Stop: 09/08/17 19:53 Acetaminophen (Tylenol 650mg/20.3ml Suspension) 1,000 mg GT Q4HR PRN PRN Reason: MOD/SEVERE PAIN Stop: 09/08/17 19:53 Acetaminophen/Hydrocodone Bitart ([place] 10 Mg/325 Mg) 1 tab GT Q6H PRN PRN Reason: Severe Pain Stop: 09/08/17 19:53 Last Admin: 07/15/17 09:45 Dose: 1 tab Albuterol/Ipratropium (Duoneb Neb) 3 ml HHN Q6HRT MIKAYLA Stop: 09/08/17 18:59 Last Admin: 07/15/17 13:07 Dose: 3 ml Albuterol/Ipratropium (Duoneb Neb) 3 ml HHN Q6HRT MIKAYLA Stop: 09/09/17 00:59 Last Admin: 07/15/17 13:24 Dose: Not Given Artificial Tears (Artificial Tears Ophth Soln) 1 drop EACH EYE BID MIKAYLA Stop: 09/09/17 08:59 Last Admin: 07/15/17 09:30 Dose: 1 drop Ascorbic Acid (Vitamin C) 500 mg GT DAILY MIKAYLA Stop: 09/12/17 08:59 Last Admin: 07/15/17 09:50 Dose: 500 mg Calcium Acetate (Phoslo) 667 mg GT BIDWM MIKAYLA Stop: 09/09/17 07:59 Last Admin: 07/15/17 10:34 Dose: 667 mg Chlorhexidine Gluconate (Peridex) 15 ml MM 0800,1999 MIKAYLA Stop: 09/08/17 19:59 Last Admin: 07/15/17 08:05 Dose: 15 ml Clindamycin HCl (Cleocin Hcl) 150 mg PO Q8HR MIKAYLA Stop: 09/13/17 12:59 Docusate Sodium (Colace) 100 mg PO DAILY MIKAYLA Stop: 09/09/17 08:59 Last Admin: 07/15/17 09:50 Dose: 100 mg Famotidine (Pepcid) 20 mg GT BID MIKAYLA Stop: 09/09/17 08:59 Last Admin: 07/15/17 09:45 Dose: 20 mg Fluconazole (Diflucan) 100 mg PO DAILY MIKAYLA Stop: 09/14/17 08:59 Dextrose/Sodium Chloride (D5-0.45ns) 1,000 mls @ 50 mls/hr IV .Q20H MIKAYLA Stop: 09/09/17 20:29 Last Admin: 07/14/17 17:15 Dose: 50 mls/hr Cefepime HCl 2 gm/ Dextrose 100 mls @ 100 mls/hr IV Q12H MIKAYLA Stop: 09/13/17 13:59 Insulin Aspart (Novolog Insulin Sliding Scale) 0 units SUBQ Q6HR MIKAYLA PRN Reason: Protocol Stop: 09/09/17 00:00 Last Admin: 07/15/17 12:49 Dose: 9 units Lactobacillus Rhamnosus (Culturelle 15b) 1 each PO DAILY MIKAYLA Stop: 09/10/17 08:59 Last Admin: 07/15/17 09:50 Dose: 1 each Magnesium Hydroxide (Milk Of Magnesia) 30 ml GT Q24H PRN PRN Reason: Constipation Stop: 09/08/17 19:53 Miscellaneous (Probiotic Screen) 1 ea MC PRN PRN PRN Reason: PROTOCOL Stop: 09/09/17 14:14 Multivitamins/Vitamin C (Theragran) 1 tab PO DAILY [facility] Stop: 09/09/17 08:59 Last Admin: 07/15/17 09:45 Dose: 1 tab Mupirocin (Bactroban Oint) 1 appl NS BID MIKAYLA Stop: 07/17/17 09:01 Last Admin: 07/15/17 09:30 Dose: 1 appl Pantoprazole Sodium (Protonix) 40 mg IVP BID [facility] Stop: 09/12/17 08:59 Last Admin: 07/15/17 09:40 Dose: 40 mg Potassium Phosphate (K Phos) 500 mg PO Q4H [facility] Stop: 09/09/17 08:14 Last Admin: 07/15/17 08:30 Dose: 500 mg Sodium Phosphate (Fleet Enema) 135 ml RC Q24H PRN PRN Reason: Constipation Stop: 09/08/17 19:53 General: No acute distress HEENT: Atraumatic Neck: Supple Cardiovascular: Regular rate Abdomen: Bowel sounds, Soft, Other (INTACT GT), no Tender, no Hepatomegaly, no Splenomegaly, no Distended, no Rebound, no Mass, no Guarding - Procedures Procedures: Procedures Procedure Code Date RESPIRATORY VENTILATION, GREATER THAN 96 CONSECUTIVE HOURS [id number] 07/10/17 Assessment/Plan - Problem List Patient Problems: All Active Problems COFFEE GROUND EMESIS WITH TACHYPNEA (Acute) Nutritional Asmnt/Malnutr-PDOC - Dietary Evaluation Malnutrition Findings (Please click <Entered> for more info): Nutritional Asmnt/Malnutrition Start: 07/11/17 14: 40 Text: Status: Complete Freq: Document 07/11/17 14:40 HENG (Rec: 07/11/17 15:04 TEDDYG ANA [id number]) Nutritional Asmnt/Malnutrition Patient General Information Nutritional Screening High Risk Diagnosis hematemesis r/o GI bleed Pertinent Medical Hx/Surgical Hx asthma/COPD, CVA/TIA, dyslipidemia, respiratory failure, PUD/GERD, ESRD, arthritis, dementia, PEG/Gtube Subjective Information Per H&P, pt had N/V/D for 3 days. Pt seen on vent via trach. Pt has Gtube noted. Per nurse note, pt had coffee ground emesis yetserday, today so far no vomiting. Pt kept on NPO for KUB. EGD is scheduled tomorrow. Current Diet Order/ Nutrition Support NPO Pertinent Medications vitamin C, colace, pepcid, novolog, levemir, culturelle, theragran, protoinix, piperacillin, K phos, nacl 0.9 % Pertinent Labs 07/11 Na 139, K 3.4, Cl 110, BUN 89, Cr 1.5, glucose 94, POC 93-98 Nutritional Hx/Data Height 1.57 m Height (Calculated Centimeters) 157.5 Current Weight (lbs) 52.163 kg Weight (Calculated Kilograms) 52.2 Weight (Calculated Grams) 03232.1 [place] Body Weight 110 Body Mass Index (BMI) 21.0 Weight Status Approriate GI Symptoms GI Symptoms None Last BM none Difficult in: None Usual diet at home Per chart, nepro 40ml/hr x 20hr to provide 800ml total volume and 800kcal. Skin Integrity/Comment: elastic roberto 11 Current %PO Negligible < 25% Estimated Nutritional Goals BEE in Kcals: Using Current wt Calories/Kcals/Kg 27-32 Kcals Calculated 7688-1004 Protein: Using Current wt Protein g/k.8-1 Protein Calculated 47-59 Fluid: ml per MD Nutritional Problem 1. Problem Problem altered nutrition related lab values Etiology hx of ESRD Signs/Symptoms: BUN 89, Cr 1.5 Intervention/Recommendation Comments 1. Monitor NPO status. 2. Monitor wt, labs and skin integrity 3. F/U as high risk in 2 days, 07/13 Expected Outcomes/Goals Expected Outcomes/Goals 1. Ptto meet at least 75% of nutritional needs in 2-3 days. 2. Wt stability, skin to remain intact, labs to approach WNL.
[2017-07-16] MEDS ORDERED: Venelex 60gm Tube TP SCH (09:00)
--- NOTE | 2017-07-16 13:23 | Pathology Report ---
[id number] Collection date: 07/12/2017 Surgeon: Dr. Marce Santana Specimen Description: Antrum biopsy Gross Description: Received in formalin are two hinds soft tissue fragments ranging from 0.1 to 0.2 cm in greatest dimension. Totally submitted in one cassette. Microscopic Description: The histologic sections show gastric mucosa with chronic inflammation present consisting of lymphocytes and plasma cells. The Giemsa stain shows no evidence for Helicobacter pylori. Diagnosis: 1. Chronic gastritis, antrum biopsy 2. The Giemsa stain is negative for Helicobacter pylori. [facility]# [id number] [facility]
== END 2017-07-15 21:10 | DRG 720 ==
LOC: ER 12:55 → ICU 16:00
PROVIDERS: ADMIT Internal Medicine; ATTEND Internal Medicine
PROC: 5A1955Z Respiratory Ventilation, Greater than 96 Consecutive Hours (ICD-10-PCS; principal; 2017-07-10)
PROC: 0DB68ZX Excision of Stomach, Via Natural or Artificial Opening Endoscopic, Diagnostic (ICD-10-PCS; 2017-07-12)
PROC: 30233N1 Transfusion of Nonautologous Red Blood Cells into Peripheral Vein, Percutaneous Approach (ICD-10-PCS; 2017-07-12)
DX: A41.9 Sepsis, unspecified organism (principal); J69.0 Pneumonitis due to inhalation of food and vomit; Z99.11 Dependence on respirator [ventilator] status; J96.10 Chronic respiratory failure, unspecified whether with hypoxia or hypercapnia; E46 Unspecified protein-calorie malnutrition; K29.71 Gastritis, unspecified, with bleeding; Z93.0 Tracheostomy status; J44.9 Chronic obstructive pulmonary disease, unspecified; I50.9 Heart failure, unspecified; N18.6 End stage renal disease; F03.90 Unspecified dementia, unspecified severity, without behavioral disturbance, psychotic disturbance, mood disturbance, and anxiety; D64.9 Anemia, unspecified; E78.5 Hyperlipidemia, unspecified; E87.1 Hypo-osmolality and hyponatremia; E86.0 Dehydration; K21.0 Gastro-esophageal reflux disease with esophagitis; K44.9 Diaphragmatic hernia without obstruction or gangrene; M19.90 Unspecified osteoarthritis, unspecified site; R13.10 Dysphagia, unspecified; K31.9 Disease of stomach and duodenum, unspecified; N39.0 Urinary tract infection, site not specified; E87.6 Hypokalemia; Z66 Do not resuscitate; Z86.73 Personal history of transient ischemic attack (TIA), and cerebral infarction without residual deficits; Z93.1 Gastrostomy status; Z87.11 Personal history of peptic ulcer disease; Z83.3 Family history of diabetes mellitus; Z82.49 Family history of ischemic heart disease and other diseases of the circulatory system; Z71.89 Other specified counseling; Z79.899 Other long term (current) drug therapy; Z68.26 Body mass index [BMI] 26.0-26.9, adult
CPT/HCPCS: 36415-UA; 71045-TC; 71250-TC; 74000-TC; 80048-TC; 80053-TC; 80061-TC; 81001-TC; 82150-TC; 82550-TC; 82947-TC; 82948-90; 83605; 83690-TC; 83880-TC; 84484-TC; 85007-TC; 85025-TC; 85027-TC; 85610-TC; 85730-TC; 86850-TC; 86900-TC; 86901-TC; 86922-TC; 87070; 87086-90; 87338-TC; 93005; 94002; 94003; 94640; 94760; 96375; C9113; J0692; J0696; J1815; J2543; J2704; J3370; J7030; J7042; J7799; P9016; Z7508; Z7610